=== PATIENT | female | born 1950 | race African-American/Black ===

== ENCOUNTER 2018-12-27 13:34 | Emergency (ER) | payer OTHER ==
--- NOTE | 2018-12-27 14:51 | RAD REPORT ---
EXAM DESCRIPTION: CT - Head C Spine Mpr Wo Con - 12/27/2018 2:34 pm CLINICAL HISTORY: Head and neck injury status post fall. Head and neck pain. Syncope COMPARISON: 2014 TECHNIQUE: Computed axial tomography of the head and cervical spine was obtained. Sagittal and coronal reconstruction was performed. All CT scans are performed using dose optimization technique as appropriate and may include automated exposure control or mA/KV adjustment according to patient size. FINDINGS: An intracranial bleed is not seen. The ventricles are normal in caliber. Mild to moderate low-density areas within periventricular, deep and subcortical white matter likely i schemic changes secondary to small vessel disease An extra-axial fluid collection is not noted.Fluid within the visualized sinuses and mastoids is not seen A cervical fracture is not visualized. No dislocation is noted. Spondylosis involves the mid and dist al cervical spine IMPRESSION: No acute intracranial abnormality is seen. A cervical fracture is not visualized. If the patient continues to have symptoms to suggest intracra nial /spinal cord pathology then MRI would be recommended
[2018-12-27 15:53] LABS: Absolute Lymphocytes (CBC) 1.4 K/uL (0.7-4.9); Basophils % 0.9 % (0-1.3); Eosinophils % 4.2 % (0-4.4); Hematocrit 43.1 % (36.0-45.0); Lymphocytes % 24.7 % (15.3-44.8); MPV 9.7 fL (7.6-11.3); Monocytes % 9.9 % (3.3-12.3); RBC Red Blood Cell Count 4.65 M/uL (3.86-4.86)
--- NOTE | 2018-12-27 15:58 | RAD REPORT ---
EXAM DESCRIPTION: RAD - Knee Right 3 View - 12/27/2018 3:13 pm CLINICAL HISTORY: fall;Pain COMPARISON: <Comparisons> FINDINGS: Arthritic changes are present without acute fracture seen. A joint effusion is not identi fied. IMPRESSION: No fractures appreciated.
--- NOTE | 2018-12-27 16:01 | RAD REPORT ---
EXAM DESCRIPTION: RAD - Knee Left 3 View - 12/27/2018 3:14 pm CLINICAL HISTORY: fall;Pain COMPARISON: <Comparisons> FINDINGS: No fracture or dislocation seen. No joint effusion.
--- NOTE | 2018-12-27 16:09 | RAD REPORT ---
EXAM DESCRIPTION: RAD - Shoulder Left 2 View - 12/27/2018 3:13 pm CLINICAL HISTORY: fall;Pain COMPARISON: <Comparisons> FINDINGS: AC joint and glenohumeral joint arthritic changes are present. No fracture or dislocation is seen.
--- NOTE | 2018-12-27 16:11 | RAD REPORT ---
EXAM DESCRIPTION: RAD - Chest Single View - 12/27/2018 3:13 pm CLINICAL HISTORY: dizziness, fall Chest pain. COMPARISON: <Comparisons> FINDINGS: Portable technique limits examination quality. The lungs are grossly clear. The heart is normal in size. No displaced fractures. IMPRESSION: No acute intrathoracic process suspected.
[2018-12-27 16:13] LABS: ALT/SGPT 19 U/L (12-78); AST/SGOT 16 U/L (15-37); Albumin 3.7 g/dL (3.4-5.0); Alkaline Phosphatase 86 U/L (45-117); BUN Blood Urea Nitrogen 31 mg/dL (7-18); Bicarbonate 31 mmol/L (21-32); Bilirubin Direct < 0.1 mg/dL (0-0.2); Bilirubin Total 0.3 mg/dL (0.2-1.0); Glucose Level 85 mg/dL (74-106); Magnesium 2.7 mg/dL (1.8-2.4); NT PRO-BNP 103 pg/mL (<125); Protein, Total 7.9 g/dL (6.4-8.2); Sodium Level 143 mmol/L (136-145); Troponin (Emerg Dept Use Only) < 0.02 ng/mL (0.0-0.045)
--- NOTE | 2018-12-27 17:11 | EDPHYS ---
Physician Documentation [facility] Name: Berna Suarez Age: 68 yrs Sex: Female : 1950 Arrival Date: 12/27/2018 Time: 13:41 Bed 26 Private MD: ED Physician Joaquin Owens HPI: 12/27 14:16 This 68 yrs old Black Female presents to ER via EMS with complaints of Knee Pain. cp 14:16 Details of fall: The patient fell from an upright position, while walking. Onset: The cp symptoms/episode began/occurred today. 14:16 Associated injuries: The patient sustained left shoulder, painful injury, left knee and cp right knee, painful injury. Severity of symptoms: in the emergency department the symptoms are unchanged, despite EMS interventions. EMS reports patient was walking dog when she became dizzy and fell to ground. No reported LOC. Historical: - Allergies: 13:44 Iodine; ca1 - Home Meds: 13:44 Lisinopril Oral [Active]; ca1 13:44 nortriptyline Oral [Active]; ca1 - PMHx: 13:44 Hypertension; ca1 - PSHx: 13:44 None; ca1 - Immunization history:: Adult Immunizations not up to date. - Social history:: Smoking status: Patient uses tobacco products, smokes one-half pack cigarettes per day. - Ebola Screening: : Patient negative for fever greater than or equal to 101.5 degrees Fahrenheit, and additional compatible Ebola Virus Disease symptoms Patient denies exposure to infectious person Patient denies travel to an Ebola-affected area in the 21 days before illness onset. ROS: 14:25 Constitutional: Negative for body aches, chills, fever, poor PO intake. cp 14:25 Cardiovascular: Negative for chest pain. cp 14:25 Respiratory: Negative for cough, shortness of breath, wheezing. 14:25 Abdomen/GI: Negative for abdominal pain, vomiting, diarrhea, constipation, black/tarry stool, rectal bleeding. 14:25 Back: Negative for pain at rest, pain with movement. 14:25 : Negative for urinary symptoms. 14:25 MS/extremity: Positive for pain, tenderness, of the left shoulder and left knee and right knee, Negative for decreased range of motion, deformity. 14:25 Neuro: Positive for dizziness, Negative for altered mental status, loss of consciousness, syncope, weakness. 14:25 All other systems are negative. Exam: 14:33 Constitutional: The patient appears in no acute distress, alert, awake, cp non-diaphoretic, non-toxic, well developed, well nourished. 14:33 Head/Face: Normocephalic, atraumatic. cp 14:33 Eyes: Periorbital structures: appear normal, Pupils: equal, round, and reactive to light and accomodation, Conjunctiva: normal, no exudate, no injection, Lids and lashes: appear normal, bilaterally. 14:33 ENT: External ear(s): are unremarkable, Ear canal(s): are normal, clear, TM's: dullness, bilaterally, Nose: is normal, Mouth: Lips: moist, Oral mucosa: moist, Posterior pharynx: is normal, airway is patent, no erythema, no exudate. 14:33 Neck: C-spine: vertebral tenderness, is not appreciated, crepitus, is not appreciated. 14:33 Chest/axilla: Inspection: normal, Palpation: is normal, no crepitus, no tenderness. 14:33 Cardiovascular: Rate: normal, Rhythm: regular, Heart sounds: murmur, not appreciated, Edema: is not appreciated, JVD: is not appreciated. 14:33 Respiratory: the patient does not display signs of respiratory distress, Respirations: normal, no use of accessory muscles, no retractions, no splinting, no tachypnea, labored breathing, is not present, Breath sounds: are clear throughout, no decreased breath sounds, no stridor, no wheezing. 14:33 Abdomen/GI: Inspection: abdomen appears normal, Palpation: abdomen is soft and non-tender, in all quadrants. 14:33 Back: vertebral tenderness, is not appreciated. 14:33 Musculoskeletal/extremity: Extremities: grossly normal except: noted in the left shoulder and left knee and right knee: pain, tenderness, There is no evidence of decreased ROM, deformity. 14:33 Neuro: Orientation: no acute changes, per EMS, per family, Mentation: no acute changes, per EMS, per family, Motor: moves all fours, strength is normal. 15:30 ECG was reviewed by the Attending Physician. cp Vital Signs: 13:44 BP 129 / 77; Pulse 78; Resp 16 S; Temp 98.4(O); Pulse Ox 100% on R/A; Weight 81.65 kg ca1 (M); Height 5 ft. 4 in. (162.56 cm); Pain 0/10; 15:30 BP 169 / 96; Pulse 64; Resp 15 S; Pulse Ox 96% on R/A; ca1 16:37 BP 146 / 93; Pulse 62; Resp 16 S; Pulse Ox 100% on R/A; ca1 17:20 BP 164 / 92; Pulse 67; Resp 17; Temp 98.5; Pulse Ox 98% on R/A; jp3 17:50 BP 168 / 98; Pulse 70; Resp 20; Temp 98.1(O); Pulse Ox 19% on R/A; ca1 18:30 BP 184 / 91; Pulse 63; Resp 16 S; Temp 98(O); Pulse Ox 98% ; ca1 13:44 Body Mass Index 30.90 (81.65 kg, 162.56 cm) ca1 MDM: 13:51 Patient medically screened. cp 17:00 Data reviewed: vital signs, nurses notes, lab test result(s), EKG, radiologic studies, cp CT scan, plain films. 17:10 Test interpretation: by ED physician or midlevel provider: plain radiologic studies. cp Counseling: I had a detailed discussion with the patient and/or guardian regarding: the historical points, exam findings, and any diagnostic results supporting the discharge/admit diagnosis, lab results, radiology results, to return to the emergency department if symptoms worsen or persist or if there are any questions or concerns that arise at home. Response to treatment: the patient's symptoms have markedly improved after treatment. ED course: VSS. Labs reviewed and radiology studies negative for fracture or intracranial injury. Will discharge home with daughter who will monitor patient. 12/27 13:53 Order name: Basic Metabolic Panel cp 12/27 13:53 Order name: CBC with Diff cp 12/27 13:53 Order name: LFT's cp 12/27 13:53 Order name: Magnesium cp 12/27 13:53 Order name: NT PRO-BNP; Complete Time: 16:49 cp 12/27 13:53 Order name: PT-INR; Complete Time: 16:49 cp 12/27 13:53 Order name: Troponin (emerg Dept Use Only); Complete Time: 16:49 cp 12/27 16:50 Interpretation: TROPED < 0.02; Reviewed. 12/27 13:53 Order name: XRAY Chest (1 view); Complete Time: 16:49 12/27 16:50 Interpretation: Report review. 12/27 13:55 Order name: Basic Metabolic Panel; Complete Time: 16:49 EDMS 12/27 16:49 Interpretation: Normal except: CL 108; BUN 31; GFR 55. 12/27 13:55 Order name: CBC with Automated Diff; Complete Time: 16:49 EDMS 12/27 16:50 Interpretation: Reviewed. 12/27 13:55 Order name: Liver (Hepatic) Function; Complete Time: 16:49 EDMS 12/27 16:49 Interpretation: Normal except: GLOB 4.2; A/G 0.9. 12/27 13:55 Order name: Magnesium; Complete Time: 16:49 EDMS 12/27 16:49 Interpretation: MG 2.7; Reviewed. 12/27 13:55 Order name: XRAY Knee LEFT 3 view; Complete Time: 16:49 12/27 13:53 Order name: EKG; Complete Time: 13:56 12/27 13:53 Order name: Cardiac monitoring; Complete Time: 15:03 12/27 13:53 Order name: EKG - Nurse/Tech; Complete Time: 15:38 12/27 13:53 Order name: IV Saline Lock; Complete Time: 15:38 12/27 13:53 Order name: Labs collected and sent; Complete Time: 15:38 12/27 13:53 Order name: O2 Per Protocol; Complete Time: 14:32 12/27 13:53 Order name: O2 Sat Monitoring; Complete Time: 14:33 12/27 13:55 Order name: XRAY Knee RIGHT 3 view; Complete Time: 16:49 12/27 13:55 Order name: XRAY Shoulder LEFT 2 view; Complete Time: 16:49 12/27 16:50 Interpretation: Report reviewed. 12/27 13:55 Order name: CT Head C Spine; Complete Time: 15:46 12/27 15:46 Interpretation: Reviewed report. 12/27 17:09 Order name: Misc. Order: ambulate patient; Complete Time: 17:50 cp EC:30 Rate is 69 beats/min. Rhythm is regular. OK interval is normal. QRS interval is cp prolonged at 112 msec. QT interval is normal. Interpreted by me. Reviewed by me. Administered Medications: Discontinued: NS 0.9% 500 ml IV at bolus once 18:18 Drug: Meclizine 25 mg Route: PO; ca1 18:46 Follow up: Response: No adverse reaction; No adverse reaction. Dizziness decreased ca1 18:18 Drug: NS 0.9% 500 ml Route: IV; Rate: bolus; Site: right antecubital; ca1 18:46 Follow up: Response: No adverse reaction ca1 18:20 Drug: Zofran 4 mg Route: IVP; Site: right antecubital; ca1 18:47 Follow up: Response: No adverse reaction ca1 18:35 Drug: cloNIDine 0.1 mg Route: PO; ca1 18:47 Follow up: Response: Medication administered at discharge. ca1 Disposition: 18:55 Chart complete. cp Disposition: 12/27/18 17:10 Discharged to Home. Impression: Fall on same level from slipping, tripping and stumbling, Pain in left shoulder, Pain in knee. - Condition is Stable. - Discharge Instructions: Shoulder Pain, Knee Pain. - Medication Reconciliation Form, Thank You Letter, Antibiotic Education, Prescription Opioid Use form. - Follow up: Private Physician; When: 2 - 3 days; Reason: Recheck today's complaints. - Problem is new. - Symptoms have improved. Signatures: Dispatcher [employer] EDMS Britton Woo PA PA cp Acob, Cheryl RN RN ca1 Corrections: (The following items were deleted from the chart) 18:48 13:53 Urine Dipstick-Ancillary ordered. ca1 18:53 17:10 12/27/2018 17:10 Discharged to Home. Impression: Fall on same level from ca1 slipping, tripping and stumbling; Pain in left shoulder; Pain in knee. Condition is Stable. Forms are Medication Reconciliation Form, Thank You Letter, Antibiotic Education, Prescription Opioid Use. Follow up: Private Physician; When: 2 - 3 days; Reason: Recheck today's complaints. Problem is new. Symptoms have improved. cp
--- NOTE | 2018-12-27 17:11 | ER ---
Nurse's Notes [facility] Name: Berna Suarez Age: 68 yrs Sex: Female : 1950 Arrival Date: 12/27/2018 Time: 13:41 Bed 26 Private MD: Diagnosis: Fall on same level from slipping, tripping and stumbling;Pain in left shoulder;Pain in knee Presentation: 12/27 13:41 Presenting complaint: EMS states: pt was walking her dog outside when she suddenly ca1 feels dizzy and fell on her knees. C/O of pain on L shoulder. L arm and soreness on both knees. NO LOC and denies hitting the head. Transition of care: patient was not received from another setting of care. Onset of symptoms was December 27, 2018. Risk Assessment: Do you want to hurt yourself or someone else? Patient reports no desire to harm self or others. Initial Sepsis Screen: Does the patient meet any 2 criteria? No. Patient's initial sepsis screen is negative. Does the patient have a suspected source of infection? No. Patient's initial sepsis screen is negative. Care prior to arrival: Glucose check: 173. 13:41 Method Of Arrival: EMS: [facility] ca1 13:41 Acuity: RAYMOND 3 ca1 Triage Assessment: 13:44 General: Appears in no apparent distress. Behavior is crying, pt saying she wants to go ca1 home and is calling names of family. EMS reports family states, this is her normal mentation . Pain: Denies pain. EENT: No deficits noted. No signs and/or symptoms were reported regarding the EENT system. Neuro: Level of Consciousness is awake, alert, obeys commands, Oriented to person, place, situation. Neuro: Cardiovascular: Heart tones S1 S2 present Capillary refill < 3 seconds Patient's skin is warm and dry. Respiratory: Airway is patent Respiratory effort is even, unlabored, Respiratory pattern is regular, symmetrical, Breath sounds are clear bilaterally. GI: Abdomen is round non-distended, Bowel sounds present X 4 quads. Abd is soft and non tender X 4 quads. : No deficits noted. No signs and/or symptoms were reported regarding the genitourinary system. Derm: Skin is intact, is healthy with good turgor, Skin is pink, warm \\T\\ dry. Musculoskeletal: Circulation, motion, and sensation intact. Capillary refill < 3 seconds. Historical: - Allergies: 13:44 Iodine; ca1 - Home Meds: 13:44 Lisinopril Oral [Active]; ca1 13:44 nortriptyline Oral [Active]; ca1 - PMHx: 13:44 Hypertension; ca1 - PSHx: 13:44 None; ca1 - Immunization history:: Adult Immunizations not up to date. - Social history:: Smoking status: Patient uses tobacco products, smokes one-half pack cigarettes per day. - Ebola Screening: : Patient negative for fever greater than or equal to 101.5 degrees Fahrenheit, and additional compatible Ebola Virus Disease symptoms Patient denies exposure to infectious person Patient denies travel to an Ebola-affected area in the 21 days before illness onset. Screenin:45 Abuse screen: Denies threats or abuse. Denies injuries from another. Nutritional ca1 screening: No deficits noted. Tuberculosis screening: No symptoms or risk factors identified. Fall Risk Fall in past 12 months (25 points). IV access (20 points). Assessment: 13:45 General: Appears in no apparent distress. unkempt, Behavior is crying. ca1 13:45 Pain: Denies pain. Neuro: Level of Consciousness is awake, alert, obeys commands, ca1 Oriented to person, place, situation. Cardiovascular: Heart tones S1 S2 present Capillary refill < 3 seconds Patient's skin is warm and dry. Respiratory: Airway is patent Respiratory effort is even, unlabored, Respiratory pattern is regular, symmetrical, Breath sounds are clear bilaterally. GI: Abdomen is round non-distended, Bowel sounds present X 4 quads. Abd is soft and non tender X 4 quads. : No deficits noted. No signs and/or symptoms were reported regarding the genitourinary system. EENT: No deficits noted. No signs and/or symptoms were reported regarding the EENT system. Derm: Skin is intact, is healthy with good turgor, Skin is pink, warm \\T\\ dry. Musculoskeletal: Circulation, motion, and sensation intact. Capillary refill < 3 seconds. 14:30 Reassessment: PT wheeled to CT via stretcher. ca1 15:27 Reassessment: Patient appears in no apparent distress at this time. Pt alert, awake. ca1 Skin, warm and dry. Breathing equal and unlabored. 16:37 Reassessment: Patient appears in no apparent distress at this time. No changes from ca1 previously documented assessment. Patient and/or family updated on plan of care and expected duration. Pain level reassessed. Pt alert, awake. Skin, warm and dry. Breathing equal and unlabored. 17:40 Reassessment: Daughter's Number (Mahsa): [phone]. ca1 17:40 Reassessment: Patient appears in no apparent distress at this time. Pt alert, awake. ca1 Skin, warm and dry. Breathing equal and unlabored. 17:46 Reassessment: Reassessment: Attempted to ambulate pt. Upon standing pt complains of ca1 dizziness and being "woozy". Notified provider. 17:47 Reassessment: Nick Valdes called daughter Mahsa to inform of pt discharge status ca1 and to tell them to come and pick pt up from the ER. 18:20 Reassessment: Patient appears in no apparent distress at this time. Pt alert, awake. ca1 Skin, warm and dry. Breathing equal and unlabored. 18:30 Reassessment: Family at bedside. Mahsa requested IVF terminated. States she cannot ca1 wait and cannot come back to pick pt up. Mahsa, daughter confirmed mentation of pt is her baseline. Pt and family instructed to take scheduled BP meds when pt gets home. Verbalized understanding of instructions. 18:35 Reassessment: RADHA Romano talked to family regarding test results. ca1 Vital Signs: 13:44 BP 129 / 77; Pulse 78; Resp 16 S; Temp 98.4(O); Pulse Ox 100% on R/A; Weight 81.65 kg ca1 (M); Height 5 ft. 4 in. (162.56 cm); Pain 0/10; 15:30 BP 169 / 96; Pulse 64; Resp 15 S; Pulse Ox 96% on R/A; ca1 16:37 BP 146 / 93; Pulse 62; Resp 16 S; Pulse Ox 100% on R/A; ca1 17:20 BP 164 / 92; Pulse 67; Resp 17; Temp 98.5; Pulse Ox 98% on R/A; jp3 17:50 BP 168 / 98; Pulse 70; Resp 20; Temp 98.1(O); Pulse Ox 19% on R/A; ca1 18:30 BP 184 / 91; Pulse 63; Resp 16 S; Temp 98(O); Pulse Ox 98% ; ca1 13:44 Body Mass Index 30.90 (81.65 kg, 162.56 cm) ca1 ED Course: 13:41 Patient arrived in ED. ca1 13:42 Britton Woo PA is PHCP. cp 13:42 Joaquin Owens MD is Attending Physician. cp 13:43 Triage completed. ca1 13:44 Arm band placed on left wrist. ca1 13:45 Patient has correct armband on for positive identification. Placed in gown. Bed in low ca1 position. Call light in reach. Side rails up X2. laboratory monitor on. Pulse ox on. NIBP on. Warm blanket given. 13:45 No provider procedures requiring assistance completed. ca1 14:14 Brenda Garcia, RN is Primary Nurse. ca1 14:36 CT Head C Spine In Process Unspecified. EDMS 14:49 Patient moved to radiology via stretcher. [facility] 15:12 XRAY Chest (1 view) In Process Unspecified. EDMS 15:12 XRAY Knee LEFT 3 view In Process Unspecified. EDMS 15:12 XRAY Knee RIGHT 3 view In Process Unspecified. EDMS 15:12 XRAY Shoulder LEFT 2 view In Process Unspecified. EDMS 15:12 X-ray completed. PT SOMEWHAT ALTERED TALKING ABOUT HER BABY DURING EXAM. Patient moved mh1 back from radiology. 15:30 Inserted saline lock: 22 gauge in right antecubital area, using aseptic technique. ca1 Blood collected. 15:48 pt daughter cell phone: [phone], Mahsa. bd 18:52 IV discontinued, intact, bleeding controlled, No redness/swelling at site. Pressure ca1 dressing applied. Administered Medications: Discontinued: NS 0.9% 500 ml IV at bolus once 18:18 Drug: Meclizine 25 mg Route: PO; ca1 18:46 Follow up: Response: No adverse reaction; No adverse reaction. Dizziness decreased ca1 18:18 Drug: NS 0.9% 500 ml Route: IV; Rate: bolus; Site: right antecubital; ca1 18:46 Follow up: Response: No adverse reaction ca1 18:20 Drug: Zofran 4 mg Route: IVP; Site: right antecubital; ca1 18:47 Follow up: Response: No adverse reaction ca1 18:35 Drug: cloNIDine 0.1 mg Route: PO; ca1 18:47 Follow up: Response: Medication administered at discharge. ca1 Outcome: 17:10 Discharge ordered by . cp 18:52 Discharged to home via wheelchair, with family. ca1 18:52 Condition: stable 18:52 Discharge instructions given to patient, daughter Instructed on discharge instructions, follow up and referral plans. Demonstrated understanding of instructions, follow-up care. 18:53 Patient left the ED. ca1 Signatures: Dispatcher [employer] EDMS Dacia Hooks Martha mh1 Britton Woo PA PA Saeid Connell jp3 Brenda Garcia RN RN ca1 Corrections: (The following items were deleted from the chart) 17:49 17:46 Reassessment: ca1 ca1 17:54 16:37 Reassessment: Patient appears in no apparent distress at this time. Patient ca1 and/or family updated on plan of care and expected duration. Pain level reassessed. ca1 17:56 16:37 Reassessment: Patient appears in no apparent distress at this time. No changes ca1 from previously documented assessment. Patient and/or family updated on plan of care and expected duration. Pain level reassessed. ca1
[2018-12-27] MEDS ORDERED: ONDANSETRON 4 MG/2 ML VIAL ONE (18:36)
[2018-12-27] MEDS ORDERED: MECLIZINE HCL 12.5 MG TAB ONE (18:36)
[2018-12-27] MEDS ORDERED: NA CHLORIDE 0.9% 500 ML ONE (18:36)
[2018-12-27] MEDS ORDERED: cloNIDine HCl 0.1 MG TAB ONE (18:56)
[2018-12-27 19:28] VITALS: BP 184/91; TEMP 98; O2SAT 98
--- NOTE | 2018-12-27 22:23 | EKG ---
Test Date: 2018-12-27 Test Time: 15:23:50 Manager Of Corporate Communications: GARCÍA MEASUREMENT RESULTS: Intervals: Rate: 69 DE: 124 QRSD: 112 QT: 424 QTc: 454 Industry: P: 65 DE: 124 QRS: -22 T: 13 INTERPRETIVE STATEMENTS: Sinus rhythm with marked sinus arrhythmia Right bundle branch block Abnormal ECG Compared to ECG 01/10/2015 12:17:15 Sinus tachycardia no longer present Electronically Signed On 12-27-18 22:22:25 CDT by Cody Hill
== END 2018-12-27 18:53 | disposition home or self-care (01) ==
LOC: ER 13:34
DX: M25.562 Pain in left knee (principal); M25.512 Pain in left shoulder; W01.0XXA Fall on same level from slipping, tripping and stumbling without subsequent striking against object, initial encounter; Y93.K1 Activity, walking an animal; Y92.9 Unspecified place or not applicable; Z91.048 Other nonmedicinal substance allergy status; I10 Essential (primary) hypertension; F17.210 Nicotine dependence, cigarettes, uncomplicated
CPT/HCPCS: 36415; 70450; 71045; 72125; 80048; 80076; 83735; 83880; 84484; 85025; 85610; 93005; 96374; 99284; J2405

== ENCOUNTER 2019-02-23 16:08 | Emergency (ER) | payer OTHER ==
--- NOTE | 2019-02-23 17:37 | RAD REPORT ---
EXAM DESCRIPTION: CT - Head C Spine Cap Wo Con - 02/23/2019 5:18 pm TECHNIQUE: Computed axial tomography of the head and cervical spine was obtained. Coronal and sagitt al reconstruction was performed Computed axial tomography of the chest, abdomen and pelvis was obtained. Contrast was not requested. All CT scans are performed using dose optimization technique as appropriate and may include automated exposure control or mA/KV adjustment according to patient size. CLINICAL HISTORY: Head and neck injury with chest and abdominal pain status post fall COMPARISON: December 2018 CT head and C-spine FINDINGS: An intracranial bleed is not seen. The ventricles are normal in caliber. An extra-axial fluid collection is not noted. . Fluid within the sinuses/mastoids is not seen. A cervical fracture is not seen. No dislocation is noted. The evaluation of mediastinum, tawanna, vessels, solid organs and bowel are limited secondary to the lac k of contrast administration. A mediastinal hematoma is not noted. A pleural effusion is not seen. A lung contusion is not present. The liver,spleen, pancreas, adrenals,kidneys and bladder do not demonstrate a gross traumatic injury Mild anterior subluxation L4 on L5 IMPRESSION: 1. No acute intracranial abnormality is seen. 2. A cervical fracture is not visualized. If the patient continues have symptoms to suggest intracran ial/spinal cord pathology MRI be recommended 3. No traumatic abnormality involving the chest/abdomen/pelvis.
[2019-02-23 18:21] LABS: Basophils % 0.5 % (0-1.3); Hematocrit 44.2 % (36.0-45.0); Lymphocytes % 17.4 % (15.3-44.8); MPV 9.6 fL (7.6-11.3); RBC Red Blood Cell Count 4.78 M/uL (3.86-4.86)
[2019-02-23 18:23] LABS: Protime INR 1.04
[2019-02-23 18:40] LABS: ALT/SGPT 23 U/L (12-78); AST/SGOT 18 U/L (15-37); Albumin 4.2 g/dL (3.4-5.0); Alkaline Phosphatase 94 U/L (45-117); BUN Blood Urea Nitrogen 20 mg/dL (7-18); Bicarbonate 28 mmol/L (21-32); Bilirubin Direct 0.1 mg/dL (0-0.2); Bilirubin Total 0.3 mg/dL (0.2-1.0); Glucose Level 89 mg/dL (74-106); Magnesium 2.5 mg/dL (1.8-2.4); NT PRO-BNP 268 pg/mL (<125); Potassium 4.1 mmol/L (3.5-5.1); Protein, Total 8.1 g/dL (6.4-8.2); Sodium Level 144 mmol/L (136-145); Troponin (Emerg Dept Use Only) < 0.02 ng/mL (0.0-0.045)
--- NOTE | 2019-02-23 18:43 | RAD REPORT ---
EXAM DESCRIPTION: RAD - Ankle Left 3 View -02/23/2019 6:19 pm CLINICAL HISTORY: Left ankle pain status post injury FINDINGS: No acute fracture or dislocation is seen.
--- NOTE | 2019-02-23 19:21 | EDPHYS ---
Physician Documentation [facility] Name: Berna Suarez Age: 68 yrs Sex: Female : 1950 Arrival Date: 02/23/2019 Time: 16:09 Bed 16 Private MD: None, None ED Physician Michael Mehta HPI: 02/23 17:26 This 68 yrs old Black Female presents to ER via EMS with complaints of Fall Injury. jmm 17:26 Details of fall: The patient fell from an upright position, while walking. Onset: The jmm symptoms/episode began/occurred acutely, just prior to arrival. This is a 68 year old female with a history of htn that presents to the ED with headache, neck pain, and lower back pain after falling down 4 steps. Patient unsure whether she had tripped or fainted. Currently denies chest pain or shortness of breath. . Historical: - Allergies: 16:17 Iodine; aa5 - PMHx: 16:17 Hypertension; aa5 - PSHx: 16:17 None; aa5 - Immunization history:: Flu vaccine status is unknown. - Immunization history: Last tetanus immunization: unknown. - Ebola Screening: : No symptoms or risks identified at this time. - Social history:: Smoking status: Patient uses tobacco products. ROS: 17:26 Constitutional: Negative for fever, chills, and weight loss, Cardiovascular: Negative jmm for chest pain, palpitations, and edema, Respiratory: Negative for shortness of breath, cough, wheezing, and pleuritic chest pain. 17:26 Neck: Positive for pain with movement. 17:26 Back: Positive for pain with movement. 17:26 MS/extremity: Positive for pain. 17:26 All other systems are negative. Exam: 17:26 Head/Face: atraumatic. Eyes: EOMI, no conjunctival erythema appreciated ENT: Moist jmm Mucus Membranes 17:26 Chest/axilla: Normal chest wall appearance and motion. Cardiovascular: Regular rate and rhythm. No edema appreciated Respiratory: Normal respirations, no respiratory distress appreciated Abdomen/GI: Non distended, soft Back: Normal ROM Skin: General appearance color normal 17:26 Constitutional: The patient appears in no acute distress, alert, awake. 17:26 Neck: C-spine: C-collar placed in ED. 17:26 Musculoskeletal/extremity: painful rom noted to the left ankle. no obvious deformity appreciated, full dorsalis pulse, compartments are soft, NVI. 17:26 Skin: Appearance: Color: normal in color. 17:26 Neuro: Orientation: is normal, Mentation: is normal, Memory: is normal. 17:26 Psych: Behavior/mood is pleasant, cooperative. Vital Signs: 16:18 BP 126 / 77; Pulse 78; Resp 18 S; Temp 98.7(O); Pulse Ox 97% on R/A; Pain 6/10; aa5 19:17 BP 152 / 107; Pulse 55; Resp 18; Pulse Ox 98% on R/A; mg2 [place] Coma Score: 19:12 Eye Response: spontaneous(4). Verbal Response: oriented(5). Motor Response: obeys mg2 commands(6). Total: 15. Trauma Score (Adult): 19:12 Eye Response: spontaneous(1); Verbal Response: oriented(1); Motor Response: obeys mg2 commands(2); Systolic BP: > 89 mm Hg(4); Respiratory Rate: 10 to 29 per min(4); [place] Score: 15; Trauma Score: 12 MDM: 17:26 Patient medically screened. [facility] 19:19 Data reviewed: vital signs, nurses notes. Counseling: I had a detailed discussion with taryn the patient and/or guardian regarding: the historical points, exam findings, and any diagnostic results supporting the discharge/admit diagnosis, radiology results, the need for outpatient follow up, to return to the emergency department if symptoms worsen or persist or if there are any questions or concerns that arise at home. 02/23 17:42 Order name: Basic Metabolic Panel [facility] 02/23 17:42 Order name: CBC with Diff [facility] 02/23 17:42 Order name: LFT's; Complete Time: 18:41 [facility] 02/23 17:42 Order name: Magnesium; Complete Time: 18:41 [facility] 02/23 17:42 Order name: NT PRO-BNP; Complete Time: 18:41 [facility] 02/23 17:42 Order name: PT-INR; Complete Time: 18:28 [facility] 02/23 16:22 Order name: Head C Spine Cap Wo Con CT; Complete Time: 17:40 [facility] 02/23 17:42 Order name: Troponin (emerg Dept Use Only); Complete Time: 18:41 [facility] 02/23 17:42 Order name: EKG; Complete Time: 17:43 [facility] 02/23 17:42 Order name: Cardiac monitoring; Complete Time: 18:12 [facility] 02/23 17:42 Order name: EKG - Nurse/Tech; Complete Time: 18:12 [facility] 02/23 17:43 Order name: Basic Metabolic Panel; Complete Time: 18:41 [facility] 02/23 17:43 Order name: CBC with Automated Diff; Complete Time: 18:28 [facility] 02/23 18:02 Order name: Ankle Left 3 View XRAY; Complete Time: 18:45 [facility] 02/23 17:42 Order name: IV Saline Lock; Complete Time: 18:12 [facility] 02/23 17:42 Order name: Labs collected and sent; Complete Time: 18:12 [facility] 02/23 17:42 Order name: O2 Per Protocol; Complete Time: 18:12 [facility] 02/23 17:42 Order name: O2 Sat Monitoring; Complete Time: 18:12 [facility] Administered Medications: No medications were administered Disposition: 02/23/19 19:20 Discharged to Home. Impression: Strain of muscle, fascia and tendon of lower back, Sprain of ligaments of cervical spine, Superficial injury of head. - Condition is Stable. - Discharge Instructions: Back Pain, Adult, Head Injury, Adult, Cervical Sprain. - Prescriptions for orphenadrine citrate 100 mg Oral Tablet Sustained Release - take 1 tablet by ORAL route 2 times per day As needed; 20 tablet. - Medication Reconciliation Form, Thank You Letter, Antibiotic Education, Prescription Opioid Use form. - Follow up: Private Physician; When: 2 - 3 days; Reason: Recheck today's complaints, Continuance of care, Re-evaluation by your physician. Signatures: Dispatcher [employer] EDMS Roberto Ireland PA PA jmm Calderon, Audri RN RN aa5 Phillip June RN RN mg2 Corrections: (The following items were deleted from the chart) 19:51 19:20 02/23/2019 19:20 Discharged to Home. Impression: Strain of muscle, fascia and mg2 tendon of lower back; Sprain of ligaments of cervical spine; Superficial injury of head. Condition is Stable. Forms are Medication Reconciliation Form, Thank You Letter, Antibiotic Education, Prescription Opioid Use. Follow up: Private Physician; When: 2 - 3 days; Reason: Recheck today's complaints, Continuance of care, Re-evaluation by your physician. gm
--- NOTE | 2019-02-23 19:21 | ER ---
Nurse's Notes [facility] Name: Berna Suarez Age: 68 yrs Sex: Female : 1950 Arrival Date: 02/23/2019 Time: 16:09 Bed 16 Private MD: None, None Diagnosis: Strain of muscle, fascia and tendon of lower back;Sprain of ligaments of cervical spine;Superficial injury of head Presentation: 02/23 16:17 Presenting complaint: Patient states: "I was coming down the steps and I fell down to aa5 the ground and my neck hurts". Pt states "I was on the ground outside until the ambulance helped me up off the ground". C-collar in place. Transition of care: patient was not received from another setting of care. Onset of symptoms was February 23, 2019. Risk Assessment: Do you want to hurt yourself or someone else? Patient reports no desire to harm self or others. Initial Sepsis Screen: Does the patient meet any 2 criteria? No. Patient's initial sepsis screen is negative. Does the patient have a suspected source of infection? No. Patient's initial sepsis screen is negative. Care prior to arrival: Cervical collar in place. 16:17 Acuity: RAYMOND 3 aa5 16:17 Method Of Arrival: EMS: [facility] aa5 19:12 Mechanism of Injury: Fall. Trauma event details: Injury occurred in the county of. mg2 Triage Assessment: 19:50 General: Behavior is calm, cooperative. mg2 Trauma Activation: Not Applicable Physician: ED Physician; Name: ; Notified At: ; Arrived At: Physician: General Surgeon; Name: ; Notified At: ; Arrived At: Physician: Radiology; Name: ; Notified At: ; Arrived At: Physician: Respiratory; Name: ; Notified At: ; Arrived At: Physician: Lab; Name: ; Notified At: ; Arrived At: Historical: - Allergies: 16:17 Iodine; aa5 - PMHx: 16:17 Hypertension; aa5 - PSHx: 16:17 None; aa5 - Immunization history:: Flu vaccine status is unknown. - Immunization history: Last tetanus immunization: unknown. - Ebola Screening: : No symptoms or risks identified at this time. - Social history:: Smoking status: Patient uses tobacco products. Screenin:52 Abuse screen: Denies threats or abuse. Denies injuries from another. Nutritional mg2 screening: No deficits noted. Tuberculosis screening: No symptoms or risk factors identified. Fall Risk IV access (20 points). Primary Survey: 19:11 NO uncontrolled hemorrhage observed. A: The patient is alert. Airway: patent, No mg2 supplemental oxygen in use on arrival. Breathing/Chest: Respiratory pattern: regular, Respiratory effort: spontaneous, unlabored, Breath sounds: clear, bilaterally. in mediastinum, right upper lobe, left upper lobe, right middle lobe, left lower lobe, right lower lobe, left posterior upper lobe, right posterior upper lobe, left posterior lower lobe, right posterior middle lobe and right posterior lower lobe. Circulation: Skin color: pink. Disability Alert. Exposure/Environment: All clothing and personal items were removed. Forensic evidence collection is not deemed to be indicated at this time. Items placed in patient belonging bag. There is no evidence of uncontrolled external bleeding. No obvious injuries are noted at this time. A warming method has been applied: A warm blanket has been provided to the patient. 19:50 Reassessment Airway Airway Patent Breathing/Chest Respiratory pattern Regular mg2 Respiratory effort Spontaneous Unlabored Circulation Color [place] Disability Alert. Secondary Survey: 19:12 HEENT: No deficits noted. Gastrointestinal: No deficits noted. : No deficits noted. mg2 Musculoskeletal: Circulation, motion, and sensation intact. Capillary refill < 3 seconds. Assessment: 19:16 Reassessment:. General: Appears in no apparent distress. comfortable. Pain: Complains mg2 of pain in neck and shoulder. Neuro: Level of Consciousness is awake, alert, obeys commands, Oriented to person, place, time, situation. Cardiovascular: Capillary refill < 3 seconds Patient's skin is warm and dry. Respiratory: Airway is patent Respiratory effort is even, unlabored, Respiratory pattern is regular, symmetrical. GI: No signs and/or symptoms were reported involving the gastrointestinal system. : No signs and/or symptoms were reported regarding the genitourinary system. EENT: No signs and/or symptoms were reported regarding the EENT system. Derm: Skin is intact, is healthy with good turgor, Skin is pink, warm \\T\\ dry. normal. Musculoskeletal: Circulation, motion, and sensation intact. Capillary refill < 3 seconds. Vital Signs: 16:18 BP 126 / 77; Pulse 78; Resp 18 S; Temp 98.7(O); Pulse Ox 97% on R/A; Pain 6/10; aa5 19:17 BP 152 / 107; Pulse 55; Resp 18; Pulse Ox 98% on R/A; mg2 [place] Coma Score: 19:12 Eye Response: spontaneous(4). Verbal Response: oriented(5). Motor Response: obeys mg2 commands(6). Total: 15. Trauma Score (Adult): 19:12 Eye Response: spontaneous(1); Verbal Response: oriented(1); Motor Response: obeys mg2 commands(2); Systolic BP: > 89 mm Hg(4); Respiratory Rate: 10 to 29 per min(4); [place] Score: 15; Trauma Score: 12 ED Course: 16:09 Patient arrived in ED. ag5 16:09 None, None is Private Physician. ag5 16:17 Arm band placed on. aa5 16:18 Triage completed. aa5 17:11 Roberto Ireland PA is PHCP. [facility] 17:11 Michael Mehta MD is Attending Physician. [facility] 17:17 CT completed. Patient tolerated procedure well. Patient moved to CT. Patient moved back nj from CT. 17:18 Head C Spine Cap Wo Con CT In Process Unspecified. EDMS 18:01 Phillip June, RN is Primary Nurse. mg2 18:20 Ankle Left 3 View XRAY In Process Unspecified. EDMS 18:53 No provider procedures requiring assistance completed. Inserted saline lock: 22 gauge mg2 in left hand, using aseptic technique. Blood collected. 19:17 Patient maintains SpO2 saturation greater than 95% on room air. Thermoregulation: warm mg2 blanket given to patient. 19:49 Patient has correct armband on for positive identification. mg2 19:50 IV discontinued, intact, bleeding controlled, No redness/swelling at site. Pressure mg2 dressing applied. Administered Medications: No medications were administered Intake: 19:12 PO: 0ml; Total: 0ml. mg2 Outcome: 19:20 Discharge ordered by . [facility] 19:49 Discharged to home via wheelchair. mg2 19:49 Condition: stable 19:49 Discharge instructions given to patient, family, Instructed on discharge instructions, follow up and referral plans. Demonstrated understanding of instructions, follow-up care, medications, Prescriptions given X 1. 19:49 Patient's length of stay was not longer than 2 hours. 19:51 Patient left the ED. mg2 Signatures: Dispatcher [employer] EDMS Roberto Ireland PA PA jmm Calderon, Audri, RN RN aa5 Maxwell Cavazos Michele, RN RN mg2 Gonzales Crockett ag5 Corrections: (The following items were deleted from the chart) 16:20 16:18 Pulse 78bpm; Resp 18bpm; Spontaneous; Pulse Ox 97% RA; Temp 98.7F Oral; aa5 aa5
[2019-02-23 19:57] VITALS: TEMP 98.7
[2019-02-23 19:59] VITALS: BP 152/107; O2SAT 98
--- NOTE | 2019-02-24 11:37 | EKG ---
Test Date: 2019-02-23 Test Time: 18:01:55 Radio Director: GARCÍA MEASUREMENT RESULTS: Intervals: Rate: 70 OH: 134 QRSD: 134 QT: 430 QTc: 464 [place]: P: 62 OH: 134 QRS: 5 T: 11 INTERPRETIVE STATEMENTS: Sinus rhythm with premature supraventricular complexes Right bundle branch block Abnormal ECG Compared to ECG 12/27/2018 15:23:50 Atrial premature complex(es) now present Sinus arrhythmia no longer present Electronically Signed On 02-24-19 11:34:53 CDT by Andrea Glass
== END 2019-02-23 19:51 | disposition home or self-care (01) ==
LOC: ER 16:08
DX: S39.012A Strain of muscle, fascia and tendon of lower back, initial encounter (principal); S13.4XXA Sprain of ligaments of cervical spine, initial encounter; S00.90XA Unspecified superficial injury of unspecified part of head, initial encounter; W10.9XXA Fall (on) (from) unspecified stairs and steps, initial encounter; Y93.9 Activity, unspecified; Y92.9 Unspecified place or not applicable; Z72.0 Tobacco use; Z91.048 Other nonmedicinal substance allergy status; I10 Essential (primary) hypertension
CPT/HCPCS: 36415; 70450; 71250; 72125; 80048; 80076; 83735; 83880; 84484; 85025; 85610; 93005

== ENCOUNTER 2025-04-03 19:36 | Inpatient (IN) | payer OTHER ==
[2025-04-03 20:09] LABS: Absolute Lymphocytes (CBC) 1.2 K/uL (0.7-4.9); Hematocrit 36.6 % (36.0-45.0); Hemoglobin 11.8 g/dL (12.0-15.0); MCH 30.2 pg (27.0-35.0); MCHC 32.2 g/dL (32.0-36.0); MCV 93.9 fL (80-100); MPV 9.9 fL (7.6-11.3); Nucleated RBC Absolute Count 0.0 (0-0); Nucleated Red Blood Cells % 0.0 % (0-0); RBC Red Blood Cell Count 3.89 M/uL (3.86-4.86); White Blood Count 14.60 thou/uL (4.3-10.9)
[2025-04-03 20:20] LABS: ALT/SGPT 20.0 U/L (13-56); AST/SGOT 11.0 U/L (15-37); Albumin 3.0 g/dL (3.4-5.0); Albumin/Globulin Ratio 0.7 (1.1-1.8); Alkaline Phosphatase 73.0 U/L (45-117); Anion Gap 8.7 mEq/L (5.0-15.0); BUN Blood Urea Nitrogen 72.0 mg/dL (7-18); Globulin 4.3 g/dL (2.3-3.5); Glucose Level 119.0 mg/dL (74-106); Lipase 20.0 U/L (13-75); Potassium 4.7 mEq/L (3.5-5.1)
[2025-04-03] MEDS ORDERED: NA CHLORIDE 0.9% 2,000 ML ONE (21:13)
[2025-04-03] MEDS ORDERED: PIPERACIL/TAZO 3.375 GM VIAL IV ONE (21:14)
[2025-04-03] MEDS ORDERED: NA CHLORIDE 0.9% 100 ML ONE (21:14)
[2025-04-03 21:43] LABS: PT Prothrombin Time 12.2 SECONDS (10-13.0); PTT, Activated Partial Thromb 24.9 SECONDS (27.2-37.4); Protime INR 1.08
[2025-04-03 22:01] LABS: NT PRO-BNP 793.0 pg/mL (<125); Troponin High Sensitivity 15.6 pg/mL (<58.9)
[2025-04-03 22:25] LABS: Sqamous Epithelial <5 /HPF (None Seen); Urine Crystals Unidentified Few /HPF (None Seen); Urine Culture Reflex Order REFLEXED; Urine Microscopic Reflex YN ORDER UMIC
--- NOTE | 2025-04-03 22:31 | RAD REPORT ---
EXAMINATION: ONE VIEW CHEST XR CLINICAL INDICATION: Female, 74 years old.,sepsis TECHNIQUE: Frontal chest projection is submitted. Examination is limited by patient positioning and t echnique. COMPARISON: 12/17/2018 FINDINGS: The lungs are grossly clear although suboptimal inspiratory effort somewhat limits evaluation. No pn eumothorax or sizable effusion. The heart is normal in size. Mediastinal contours are unremarkable. IMPRESSION: No acute intrathoracic abnormalities.
[2025-04-03] MEDS ORDERED: NOREPINEPHRINE BITARTRATE/D5W 4 MG/250 ML BAG IV ONE (22:49)
--- NOTE | 2025-04-03 22:50 | EDPHYS ---
Physician Documentation [facility] Name: Berna Suarez Age: 74 yrs Sex: Female : 1950 Arrival Date: 04/03/2025 Time: 19:36 Bed 3 Private MD: ED Physician Uriel Baron HPI: 04/03 20:02 This 74 yrs old Black Female presents to ER via EMS with complaints of Abnormal Lab tt7 Results. 22:54 It is unclear what the abnormal lab result was, patient was brought in by EMS from her [facility] facility, history obtained from EMS states that apparently the patient has been a little more confused and less talkative than normal, she does have a history of Alzheimer's and dementia but has seemed a bit delirious from her baseline, the patient denies any symptoms, other medical history includes hypertension, dysphagia, intermittent explosive disorder. 22:55 HPI is somewhat limited due to patient's dementia and likely metabolic encephalopathy. tt7 Historical: - Allergies: 19:50 Shrimp; hm5 - Home Meds: 21:46 Depakote ER 125mg Oral Tablet, Extended Release 24 hr 1 tab 2 times daily [Active]; hm5 acetaminophen-codeine 300-30 mg Oral tablet 1 tab 2 times per day for pain [Active]; amlodipine besylate (bulk) 5mg tab 1 tab daily [Active]; Zoloft 25 mg Oral tablet 1 tab daily [Active]; lisinopril 40 mg Oral tablet 1 tab daily [Active]; memantine 14 mg oral Capsule, Sprinkle Ext Rel 24hr Dose Pack 1 cap daily [Active]; meloxicam 15 mg oral tablet 1 tab daily [Active]; hydrochlorothiazide 25 mg Oral tablet 1 tabs daily [Active]; Tylenol 325 mg oral tablet 2 tab every 6 hours for pain [Active]; - PMHx: 19:50 Hypertension; Alzheimer's disease; Dysphagia; hm5 21:43 vitamin d deficiency; polyosteoarthritis; major depressive order; hm5 21:45 intermittent explosive disorder; hm5 - Immunization history:: Adult Immunizations up to date. - Infectious Disease History:: Denies. - Social history:: Smoking status: unknown. ROS: 22:55 Constitutional: negative for fever. Cardiovascular: negative for chest pain. tt7 Respiratory: negative for shortness of breath. Abdomen/GI: negative for abdominal pain, nausea, vomiting, diarrhea. Skin: negative for rash. Exam: 22:56 Constitutional: vital signs reviewed, slightly ill appearing. Head/Face: tt7 normocephalic, atraumatic. Eyes: no conjunctival injection, anicteric sclerae. ENT: mucus membranes dry. Neck: trachea midline, no JVD, no meningismus. Chest/axilla: normal chest wall appearance and motion, nontender, no crepitus. Cardiovascular: regular rate and rhythm, no murmurs, no rubs, no lower extremity edema. Respiratory: normal respiratory effort, no accessory muscle use, lungs CTAB. Abdomen/GI: soft, nondistended, nontender, no guarding or rebound, negative Sandy's sign, no McBurney point tenderness. Back: normal ROM. Skin: slightly clammy, intact, no rash. MS/ Extremity: normal ROM of extremities, no gross deformities. Neuro: Awake with normal speech, somewhat somnolent, moves all extremities, mostly nods head in response to questions Vital Signs: 19:40 Pulse 71; Resp 19; Temp 98.3; Pulse Ox 95% on R/A; Weight 79.38 kg; Height 5 ft. 2 in. hm5 ; Pain 0/10; 20:03 BP 93 / 69; hm5 21:00 BP 85 / 56; Pulse 71; Resp 18; Pulse Ox 95% on R/A; MAP 67 mmHg; hm5 21:39 BP 117 / 71; Pulse 67; Resp 19; Pulse Ox 97% on R/A; MAP 87 mmHg; hm5 22:00 BP 89 / 57; Pulse 71; Resp 20; Pulse Ox 96% on R/A; MAP 69 mmHg; hm5 22:15 BP 87 / 51; Pulse 75; Resp 22; Pulse Ox 95% on R/A; MAP 63 mmHg; hm5 22:45 BP 94 / 55; Pulse 72; Resp 20; Pulse Ox 96% on R/A; MAP 69 mmHg; hm5 23:00 BP 92 / 39; Pulse 73; Resp 20; Pulse Ox 95% on R/A; MAP 54 mmHg; hm5 23:15 BP 107 / 61; Pulse 75; Resp 21; Pulse Ox 95% on R/A; MAP 75 mmHg; 5 23:45 BP 138 / 88; Pulse 81; Resp 20; Pulse Ox 97% on R/A; MAP 88 mmHg; [facility] 04/04 00:15 BP 120 / 53; Pulse 92; Resp 20; Pulse Ox 94% on R/A; MAP 73 mmHg; [facility] 00:30 BP 111 / 53; Pulse 94; Resp 21; Pulse Ox 96% ; MAP 70 mmHg; [facility] 00:45 BP 149 / 99; Pulse 107; Resp 20; Pulse Ox 98% on 2 lpm NC; [facility] 04/03 19:40 Body Mass Index 32.01 (79.38 kg, 157.48 cm) [facility] 04/03 19:40 Pain Scale: Non-Verbal [facility] MDM: 04/03 19:38 Medical Screening Exam initiated tt7 20:03 Differential Diagnosis Leukocytosis, anemia, hyponatremia, hypernatremia, hypokalemia, tt7 hyperkalemia, metabolic acidosis, pancreatitis, acute renal failure, acute liver failure. Data reviewed: vital signs, nurses notes, longterm records. Historians other than the Patient: EMS: EMS was primary source of history. Care significantly affected by the following chronic conditions: Alzheimer's disease, dementia. ED course: Cardiac monitoring was ordered due to the potential for electrolyte abnormality causing dysrythmia. 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 20:39 ED course: I have reviewed the patient's laboratory studies and notable findings tt7 include a leukocytosis of 14,600 and an elevated creatinine of 3.06 with a BUN of 72, this raises some concern for potential infection so we will initiate sepsis workup including blood cultures and give empiric parenteral broad-spectrum antibiotic. Will evaluate patient for potential sources of infection and attempt to review any past medical records to see if patient's elevated creatinine is chronic or acute. 20:54 ED course: I reviewed patient's most recent emergency department visit at our facility tt7 from 02/23/2019 and at that time patient's creatinine was 1.26, I do not have any more recent creatinine results to review so will presume that patient's elevated creatinine of 3.06 is acute. Patient will require inpatient admission for further evaluation and management of potential systemic infection and acute renal failure. I reassessed the patient and currently her blood pressure is 79/52, this along with her physical exam findings and labs raises concern for mixed hypovolemic and septic shock, due to potential for cardiovascular collapse, I am initiating aggressive IV fluid resuscitation with 30 mL/kilogram bolus. Will reassess the patient for improvement and consider initiating Levophed if the patient does not respond to IV fluids. 21:31 ED course: I reassessed the patient, mental status ucnahnged, she is responding to the tt7 IV fluid bolus, her blood pressure is currently 117/71, heart rate of 80, will continue to monitor. I considered ordering CT imaging of the abdomen/pelvis to assess for abdominal sources of infection but decided against this at this time given that patient's abdominal exam is benign, she is not having any vomiting or diarrhea, and because the test would be more sensitive with IV contrast but this potentially could cause further renal injury. 22:41 ED course: I reassessed the patient and her mental status seems to be improving some, tt7 is more talkative and interactive now, however, blood pressure is currently MAP 62 despite 30ml/kg IV fluid bolus. I think the patient would benefit from Levophed infusion to support her hemodynamics and improve renal perfusion in hopes of reversing some degree of kidney injury. Will target MAP of >75. I independently interpreted the patient's EKG performed on 04/03/2025 at 2122. On my interpretation, EKG demonstrates normal sinus rhythm, ventricular rate 78 bpm, normal axis, QRS duration of 112 ms, normal ST segments, T wave inversions in lead III, aVF, and V3, no STEMI. I independently interpreted the patient's chest x-ray. On my interpretation, chest x-ray demonstrates no radiographic evidence of acute cardiopulmonary disease. I spoke with the patient's daughter at bedside, I got further history that she noticed the patient to be slightly more confused, sleepy, and less talkative for the past 2 days, she was concerned and asked the longterm staff to evaluate the patient and consider taking her to the hospital, I took the patient's blood pressure today and noted it to be approximately 75/50 and the daughter asked them to call EMS. She does not have a known history of chronic kidney disease, I updated the patient and her daughter regarding the emergency department workup, laboratory test results, interventions performed, and plan for admission to the intensive care unit. ED course: . 23:06 ED course: I spoke with inpatient physician Dr. Romero regarding the patient's clinical tt7 presentation, vital signs, laboratory test results, emergency department interventions, and my resuscitation plan, accepts the patient for admission to the intensive care unit. 23:46 ED course: This patient has a medical condition that impairs one or more vital organ tt7 systems and has a high probability of imminent or life threatening deterioration in their condition. Management of this patient required my highest level of care and included frequent personal assessment and intervention. I personally spent 35 minutes of critical care time, exclusive of time spent on separately billable procedures, in the evaluation and management of this patient's condition. This critical care time included independently obtaining a history, examining the patient, pulse oximetry, cardiac telemetry monitoring, ordering and review of studies laboratory and imaging studies, development of a management plan, evaluation of patient's response to treatment, frequent reassessment, and discussion with other healthcare providers. 04/03 19:39 Order name: CBC with Diff; Complete Time: 20:33 tt7 04/03 19:39 Order name: CMP; Complete Time: 20:33 tt7 04/03 19:39 Order name: Lipase; Complete Time: 20:33 tt7 04/03 20:47 Order name: BNP; Complete Time: 22:10 tt7 04/03 20:47 Order name: Blood Culture Adult (2) tt7 04/03 20:47 Order name: Lactate w/ 2H reflex if indic.; Complete Time: 22:10 tt7 04/03 20:47 Order name: Protime (+inr); Complete Time: 22:10 tt7 04/03 20:47 Order name: Ptt, Activated; Complete Time: 22:10 tt7 04/03 20:47 Order name: Troponin HS; Complete Time: 22:10 tt7 04/03 20:47 Order name: UA Rfx Edson Cult if indicated; Complete Time: 22:38 tt7 04/03 22:36 Order name: Urine Culture EDMS 04/03 23:11 Order name: CBC with Automated Diff EDMS 04/03 23:11 Order name: CBC with Automated Diff EDMS 04/03 23:11 Order name: Comprehensive Metabolic Panel EDMS 04/03 23:11 Order name: Comprehensive Metabolic Panel EDMS 04/03 23:11 Order name: Troponin High Sensitivity EDMS 04/03 23:11 Order name: Troponin High Sensitivity; Complete Time: 05:25 EDMS 04/03 20:47 Order name: Chest Single View XRAY; Complete Time: 22:38 tt7 04/03 20:47 Order name: EKG; Complete Time: 20:47 tt04/03 19:39 Order name: IV Saline Lock; Complete Time: 20:23 tt7 04/03 19:39 Order name: Labs collected and sent; Complete Time: 20:24 tt7 04/03 19:45 Order name: Cardiac monitoring; Complete Time: 20:25 tt7 04/03 20:47 Order name: EKG - Nurse/Tech; Complete Time: 22:24 tt04/03 20:47 Order name: IV Saline Lock - Large Bore; Complete Time: 20:54 tt7 04/03 20:47 Order name: O2 Per Protocol; Complete Time: 20:54 04/03 20:47 Order name: O2 Sat Monitoring; Complete Time: 20:54 tt04/03 20:47 Order name: Vital Signs; Complete Time: 20:54 tt7 Administered Medications: 21:37 Drug: Piperacillin-Tazobactam IVPB 3.375 grams IVPB once over 60 mins; (mix in NS 100 hm5 mL) Route: IVPB; Infused Over: 60 mins; Site: left wrist; 22:36 Follow up: Response: No adverse reaction; IV Status: Completed infusion; IV Intake: hm5 100ml 21:38 Drug: NS 0.9% IV (30 ml/kg) 30 ml/kg IV at bolus once; Sepsis Protocol; to be given as hm5 a bolus over 90 minutes Route: IV; Rate: bolus; Site: left wrist; 23:00 Follow up: IV Status: Completed infusion; IV Intake: 2300ml hm5 23:05 Drug: Norepinephrine IV 0.1 mcg/kg/min IV at calculated rate See Administration hm5 Instructions; (Standard concentration 4 mg / 250 mL D5W); Recommended max rate 3 mcg/kg/min; Titrate 0.05 mcg/kg/min as often as every 5 minutes to achieve goal (see titration policy); Goal parameter MAP greater than 65 mmHg. Route: IV; Rate: calculated rate; Site: left wrist; 23:51 Follow up: Rate change 0.05 mcg/kg/min hm5 04/04 00:31 Follow up: Rate change 0.1 mcg/kg/min hm5 00:43 Follow up: Rate change 0.05 mcg/kg/min [facility] Disposition: 04/03 23:47 Co-signature as Attending Physician, Uriel Baron DO. tt7 Disposition Summary: 04/03/25 22:49 Hospitalization Ordered Notes: Hospitalization Status: Inpatient Admission tt7 Provider: Shady Romero tt7 Location: Intensive Care Unit tt7 Condition: Guarded tt7 Problem: new tt7 Symptoms: have improved tt7 Bed/Room Type: Standard 7 Room Assignment: 3-(04/03/25 23:29) Diagnosis - Severe sepsis with septic shock tt7 - Hypovolemic shock tt7 - Acute kidney failure, unspecified tt7 - Hypotension, unspecified tt7 Forms: - Medication Reconciliation Form tt7 - SBAR form tt7 - Leadership Thank You Letter tt7 Signatures: Dispatcher [employer] EDOrquidea Ratliff RN RN kl McDaniel, Heather, RN RN [facility] Uriel Baron DO DO tt7 Corrections: (The following items were deleted from the chart) 20:54 20:47 Accucheck ordered. tt7 jj7 23:06 20:54 ED course: I reviewed patient's most recent emergency department visit at our [facility] facility from 02/23/2019 and at that time patient's creatinine was 1.26, I do not have any more recent creatinine results to review so will presume that patient's elevated creatinine of 3.06 is acute. Patient will require inpatient admission for further evaluation and management of potential systemic infection and acute renal failure. I reassessed the patient and currently her blood pressure is 79/52, this raises concern for septic shock and potential for cardiovascular collapse, I am initiating aggressive IV fluid resuscitation with 30 mL/kilogram bolus. Will reassess the patient for improvement and consider initiating Levophed if the patient does not respond to IV fluids. tt7 23:06 21:31 ED course: I reassessed the patient, mental status remains appropriate, she is tt7 responding to the IV fluid bolus, her blood pressure is currently 117/71, heart rate of 80, will continue to monitor. I considered ordering CT imaging of the abdomen/pelvis to assess for abdominal sources of infection but decided against this at this time given that patient's abdominal exam is benign, she is not having any vomiting or diarrhea, and because the test would be more sensitive with IV contrast but this potentially could cause further renal injury. tt7 : 22:41 ED course: I spoke with the patient's daughter at bedside, I got further history tt7 that she noticed the patient to be slightly more confused, sleepy, and less talkative for the past 2 days, she was concerned and asked the longterm staff to evaluate the patient and consider taking her to the hospital, I took the patient's blood pressure today and noted it to be approximately 75/50 and the daughter asked them to call EMS. She does not have a known history of chronic kidney disease, I updated the patient and her daughter regarding the emergency department workup, laboratory test results, interventions performed, and plan for admission to the intensive care unit. tt7 : 22:41 ED course: I spoke with inpatient physician Dr. Romero regarding the patient's tt7 clinical presentation, vital signs, laboratory test results, emergency department interventions, and my resuscitation plan, accepts the patient for admission to the intensive care unit. tt7 : 22:49 tt7 kl
--- NOTE | 2025-04-03 22:50 | ER ---
Nurse's Notes [facility] Name: Berna Suarez Age: 74 yrs Sex: Female : 1950 Arrival Date: 04/03/2025 Time: 19:36 Bed 3 Private MD: Diagnosis: Severe sepsis with septic shock;Hypovolemic shock;Acute kidney failure, unspecified;Hypotension, unspecified Presentation: 04/03 19:40 Chief complaint: EMS states: [facility] called for "abnormal labs" on [facility] Thursday. Unknown what the abnormal labs are. Sts they called due to pt's daughter's request. Coronavirus screen: Client denies travel out of the [place] in the last 14 days. At this time, the client does not indicate any symptoms associated with coronavirus-19. Ebola Screen: Patient negative for fever greater than or equal to 101.5 degrees Fahrenheit, and additional compatible Ebola Virus Disease symptoms Patient denies exposure to infectious person. Patient denies travel to an Ebola-affected area in the 21 days before illness onset. No symptoms or risks identified at this time. Initial Sepsis Screen: Does the patient meet any 2 criteria? No. Patient's initial sepsis screen is negative. Does the patient have a suspected source of infection? No. Patient's initial sepsis screen is negative. Risk Assessment: Do you want to hurt yourself or someone else? Patient reports no desire to harm self or others. Onset of symptoms was April 01, 2025. 19:40 Method Of Arrival: EMS: [facility] 19:40 Acuity: [facility] 3 [facility] Historical: - Allergies: 19:50 Shrimp; [facility] - Home Meds: 21:46 Depakote ER 125mg Oral Tablet, Extended Release 24 hr 1 tab 2 times daily [Active]; [facility] acetaminophen-codeine 300-30 mg Oral tablet 1 tab 2 times per day for pain [Active]; amlodipine besylate (bulk) 5mg tab 1 tab daily [Active]; Zoloft 25 mg Oral tablet 1 tab daily [Active]; lisinopril 40 mg Oral tablet 1 tab daily [Active]; memantine 14 mg oral Capsule, Sprinkle Ext Rel 24hr Dose Pack 1 cap daily [Active]; meloxicam 15 mg oral tablet 1 tab daily [Active]; hydrochlorothiazide 25 mg Oral tablet 1 tabs daily [Active]; Tylenol 325 mg oral tablet 2 tab every 6 hours for pain [Active]; - PMHx: 19:50 Hypertension; Alzheimer's disease; Dysphagia; hm5 21:43 vitamin d deficiency; polyosteoarthritis; major depressive order; hm5 21:45 intermittent explosive disorder; hm5 - Immunization history:: Adult Immunizations up to date. - Infectious Disease History:: Denies. - Social history:: Smoking status: unknown. Screenin:43 [facility] ED Fall Risk Assessment (Adult) History of falling in the last 3 months, 5 including since admission No falls in past 3 months (0 pts) Confusion or Disorientation Yes (5 pts) Intoxicated or Sedated No (0 pts) Impaired Gait Yes (1 pt) Mobility Assist Device Used No (0 pt) Altered Elimination Yes (1 pt) Score/Fall Risk Level 3 or more points = High Risk Oriented to surroundings, Maintained a safe environment, Assessed \\T\\ reinforced patient's understanding of fall precautions, Hourly rounding (assess needs \\T\\ fall precautionary measures) done, Utilized family, sitter, or virtual fan installer as indicated. Abuse screen: Denies threats or abuse. Denies injuries from another. Nutritional screening: No deficits noted. Tuberculosis screening: No symptoms or risk factors identified. Assessment: 20:45 General: Appears in no apparent distress. comfortable, well groomed, well developed, hm5 well nourished, Behavior is calm, cooperative. Pain: Denies pain. Neuro: Level of Consciousness is awake, alert, obeys commands, confused, history of alzheimers dementia. daughter reports pt has been talking less than usual.. Oriented to person. Cardiovascular: Rhythm is sinus rhythm Parent/caregiver reports patient has had care home told daughter that pt's blood pressure was in the 70s systolic but then told her it was an inaccurate reading. bp 130/60 per ems. Respiratory: No deficits noted. GI: No deficits noted. No signs and/or symptoms were reported involving the gastrointestinal system. : Parent/caregiver report the patient having daughter reports care home told her that pt's labs showed "something wrong with her kidneys" on 04/01/25. EENT: No deficits noted. No signs and/or symptoms were reported regarding the EENT system. Derm: No deficits noted. No signs and/or symptoms reported regarding the dermatologic system. Musculoskeletal: No deficits noted. No signs and/or symptoms reported regarding the musculoskeletal system. 21:39 Reassessment: first set of blood cultures obtained and sent at 21:15, second set hm5 obtained and sent at 21:30. 04/04 01:12 Reassessment: pt had run of vtach on monitor, bp increased, levophed titrated back hm5 down, Dr. Baron at bedside. EKG to be repeated, labs to be sent. Vital Signs: 04/03 19:40 Pulse 71; Resp 19; Temp 98.3; Pulse Ox 95% on R/A; Weight 79.38 kg; Height 5 ft. 2 in. hm5 ; Pain 0/10; 20:03 BP 93 / 69; hm5 21:00 BP 85 / 56; Pulse 71; Resp 18; Pulse Ox 95% on R/A; MAP 67 mmHg; hm5 21:39 BP 117 / 71; Pulse 67; Resp 19; Pulse Ox 97% on R/A; MAP 87 mmHg; hm5 22:00 BP 89 / 57; Pulse 71; Resp 20; Pulse Ox 96% on R/A; MAP 69 mmHg; hm5 22:15 BP 87 / 51; Pulse 75; Resp 22; Pulse Ox 95% on R/A; MAP 63 mmHg; hm5 22:45 BP 94 / 55; Pulse 72; Resp 20; Pulse Ox 96% on R/A; MAP 69 mmHg; hm5 23:00 BP 92 / 39; Pulse 73; Resp 20; Pulse Ox 95% on R/A; MAP 54 mmHg; hm5 23:15 BP 107 / 61; Pulse 75; Resp 21; Pulse Ox 95% on R/A; MAP 75 mmHg; hm5 23:45 BP 138 / 88; Pulse 81; Resp 20; Pulse Ox 97% on R/A; MAP 88 mmHg; 5 04/04 00:15 BP 120 / 53; Pulse 92; Resp 20; Pulse Ox 94% on R/A; MAP 73 mmHg; hm5 00:30 BP 111 / 53; Pulse 94; Resp 21; Pulse Ox 96% ; MAP 70 mmHg; hm5 00:45 BP 149 / 99; Pulse 107; Resp 20; Pulse Ox 98% on 2 lpm NC; 5 04/03 19:40 Body Mass Index 32.01 (79.38 kg, 157.48 cm) 5 04/03 19:40 Pain Scale: Non-Verbal [facility] ED Course: 04/03 19:38 Patient arrived in ED. rv1 19:38 Uriel Baron DO is Attending Physician. tt7 19:39 Marium Fitzpatrick, RN is Primary Nurse. 5 19:50 Triage completed. hm5 20:24 Initial lab(s) drawn, by me, sent to lab. Inserted saline lock: 20 gauge in left vk forearm, using aseptic technique. Blood collected. Flushed with 10 mL NS. 21:15 First set of blood cultures drawn by me. vk 21:15 quality assurance monitor final on. Pulse ox on. NIBP on. hm5 21:23 Chest Single View XRAY In Process Unspecified. EDMS 21:30 Second set of blood cultures drawn by me. vk 21:38 No provider procedures requiring assistance completed. hm5 21:38 Patient has correct armband on for positive identification. Bed in low position. Call 5 light in reach. Side rails up X2. Adult w/ patient. Provided Education on: plan of care. 21:50 Delgado cath inserted, using sterile technique, 16 Fr., by me, by kennel manager, balloon hm5 inflated, to gravity drainage, urine specimen collected. returned nick urine. Patient tolerated well. 22:11 Blood Culture Adult (2) Sent. vk 22:13 UA Rfx Edson Cult if indicated Sent. vk 22:20 EKG done, by ED staff, reviewed by Uriel Baron DO. 5 22:47 Shady Romero MD is Hospitalizing Provider. tt7 23:58 Arm band placed on right wrist. [facility] 04/04 01:20 Patient admitted, IV remains in place. hm5 Administered Medications: 04/03 21:37 Drug: Piperacillin-Tazobactam IVPB 3.375 grams IVPB once over 60 mins; (mix in NS 100 hm5 mL) Route: IVPB; Infused Over: 60 mins; Site: left wrist; 22:36 Follow up: Response: No adverse reaction; IV Status: Completed infusion; IV Intake: hm5 100ml 21:38 Drug: NS 0.9% IV (30 ml/kg) 30 ml/kg IV at bolus once; Sepsis Protocol; to be given as hm5 a bolus over 90 minutes Route: IV; Rate: bolus; Site: left wrist; 23:00 Follow up: IV Status: Completed infusion; IV Intake: 2300ml hm5 23:05 Drug: Norepinephrine IV 0.1 mcg/kg/min IV at calculated rate See Administration [facility] Instructions; (Standard concentration 4 mg / 250 mL D5W); Recommended max rate 3 mcg/kg/min; Titrate 0.05 mcg/kg/min as often as every 5 minutes to achieve goal (see titration policy); Goal parameter MAP greater than 65 mmHg. Route: IV; Rate: calculated rate; Site: left wrist; 23:51 Follow up: Rate change 0.05 mcg/kg/min hm5 04/04 00:31 Follow up: Rate change 0.1 mcg/kg/min hm5 00:43 Follow up: Rate change 0.05 mcg/kg/min 5 Intake: 04/03 22:36 IV: 100ml; Total: 100ml. hm5 23:00 IV: 2300ml; Total: 2400ml. [facility] Outcome: 22:49 Decision to Hospitalize by Provider. tt7 04/04 01:20 Admitted to ICU accompanied by nurse, via stretcher, with oxygen, on monitor, with [facility] chart, Report called to [address] Condition: stable Instructed on the need for admit, 01:50 Patient left the ED. [facility] Signatures: Dispatcher [employer] EDMahsa Ricardo rvLynda Harp Heather, [address] RN [facility] Uriel Baron DO DO tt7 Corrections: (The following items were deleted from the chart) 04/03 23:55 22:00 BP 89 / 57; Pulse 71bpm; Resp 20bpm; Pulse Ox 96% RA; 5 5 23:55 22:45 BP 94 / 55; Pulse 72bpm; Resp 20bpm; Pulse Ox 96% RA; [place] [id number] 23:55 23:15 BP 107 / 61; Pulse 75bpm; Resp 21bpm; Pulse Ox 95% RA; [facility] 23:56 21:39 BP 117 / 71; Pulse 67bpm; Resp 19bpm; Pulse Ox 97% RA; [facility] 23:56 21:00 BP 85 / 57; Pulse 71bpm; Resp 18bpm; Pulse Ox 95% RA; hm5 hm5 23:57 23:56 BP 87 / 51; Pulse 75bpm; Resp 22bpm; Pulse Ox 95% RA; MAP 63 mmHg; hm5 hm5
[2025-04-03] MEDS ORDERED: ONDANSETRON 4 MG/2 ML VIAL IV PRN (23:06)
--- NOTE | 2025-04-03 23:06 | P.HP ---
Certification for Inpatient Patient admitted to: Inpatient With expected LOS: >2 Midnights Practitioner: I am a practitioner with admitting privileges, knowledge of patient current condition, hospital course, and medical plan of care. Services: Services provided to patient in accordance with Admission requirements found in Title 42 Section 412.3 of the Code of Federal Regulations Patient History Date of Service: 04/04/25 Reason for admission: Hypotension History of Present Illness: 74 yrs old Female with past medical history of hypertension, hyperlipidemia, dementia, vitamin D deficiency, polyosteoarthritis, major depression, history of dysphagia, who is a resident in long term was brought to ER with generalized weakness and altered level of consciousness. Patient is demented hence most of the history is obtained from the chart review and also talking with the ER physician and history obtained from EMS states that apparently the patient has been a little more confused and less talkative than normal, she does have a history of Alzheimer's and dementia but has seemed a bit delirious from her baseline, the patient denies any symptoms Patient was assessed in the ER and was found to be hypotensive and hypovolemic hence was started on IV hydration and was admitted to the ICU for further management. Allergies Iodine-Iodine Containing Allergy (Uncoded 01/10/15 15:57) Unknown Home medications list reviewed: Yes Home Medications: Acetaminophen [Tylenol] 650 mg PO Q6HP PRN 04/04/25 Acetaminophen with Codeine [Acetaminophen-Cod #3 Tablet] 1 each PO BID 04/04/25 Amlodipine [Norvasc] 2.5 mg PO DAILY 04/04/25 Amlodipine [Norvasc] 5 mg PO DAILY 04/04/25 Divalproex [Depakote Sprinkle] 125 mg PO BID 04/04/25 Mag Hydroxide 8% [Milk Of Magnesia] 30 ml PO DAILYPRN PRN 04/04/25 Meloxicam 15 mg PO DAILY 04/04/25 Memantine HCl [Memantine HCl ER] 14 mg PO DAILY 04/04/25 Ondansetron [Zofran] 4 mg PO Q8H PRN 04/04/25 Zoloft 25 1 tab PO DAILY 04/04/25 hydroCHLOROthiazide [Hydrodiuril] 25 mg PO DAILY 04/04/25 lisinopriL [Lisinopril] 40 mg PO DAILY 04/04/25 - Past Medical/Surgical History Past Medical History: Reviewed- Non-Contributory Past Surgical History: Reviewed- Non-Contributory - Family History Mother -: Hypertension, Diabetes, Cancer - Social History Smoking Status: Never smoker Review of Systems is unable to be obtained Physical Examination - Vital Signs Temperature: 98.3 F Blood Pressure: 103/65 Pulse: 72 Respirations: 18 Pulse Ox (%): 94 - Physical Exam General: Alert, Confused HEENT: Atraumatic, Normocephalic Neck: Supple Respiratory: Clear to auscultation bilaterally, Normal air movement Cardiovascular: Regular rate/rhythm, Normal S1 S2 Capillary refill: <2 Seconds Gastrointestinal: Soft and benign, W/out hepatosplenomegaly Musculoskeletal: No clubbing Integumentary: No rashes Neurological: Other (Awake confused ) - Studies Laboratory Data (last 24 hrs) 04/03/25 04/03/25 04/03/25 21:15 19:58 19:58 WBC 14.60 H Hgb 11.8 L Hct 36.6 Plt Count 204 PT 12.2 INR 1.08 APTT 24.9 L Sodium 140 Potassium 4.7 BUN 72 H Creatinine 3.06 H Glucose 119 H Total Bilirubin 0.4 AST 11 L ALT 20 Alkaline Phosphatase 73 Lipase 20 Assessment and Plan - Plan Acute encephalopathy metabolic Baseline dementia Monitor vital signs closely Leukocytosis Shock possibly to hypovolemia/sepsis Started Levophed and titrate IV hydration UTI Started on IV antibiotic Obtain cultures Change therapeutic as per sensitivity Dementia History of hypertension Hyperlipidemia Arthritis Continue home medications and titrate as needed GI/DVT prophylaxis Advanced directive full code Discharge Plan: Residential Plan to discharge in: 48 Hours - Advance Directives Does patient have a Living Will: No Does patient have a Durable POA for Healthcare: No - Code Status/Comfort Care Code Status: Full Code Time Spent Managing Pts Care (In Minutes): 49
[2025-04-04] MEDS: NOREPINEPHRINE 4 MG in D5W 250 ML IV SCH (01:40)
[2025-04-04] MEDS: NA CHLORIDE 0.9% 1,000 ML IV SCH (02:32)
[2025-04-04 06:11] LABS: Absolute Lymphocytes (CBC) 1.3 K/uL (0.7-4.9); Hematocrit 33.8 % (36.0-45.0); Hemoglobin 11.3 g/dL (12.0-15.0); MCH 31.1 pg (27.0-35.0); MCHC 33.4 g/dL (32.0-36.0); MCV 93.3 fL (80-100); MPV 9.5 fL (7.6-11.3); Nucleated RBC Absolute Count 0.0 (0-0); Nucleated Red Blood Cells % 0.1 % (0-0); RBC Red Blood Cell Count 3.63 M/uL (3.86-4.86); White Blood Count 15.70 thou/uL (4.3-10.9)
[2025-04-04 06:31] LABS: ALT/SGPT < 14 U/L (13-56); AST/SGOT 11 U/L (15-37); Albumin 2.8 g/dL (3.4-5.0); Albumin/Globulin Ratio 0.7 (1.1-1.8); Alkaline Phosphatase 71 U/L (45-117); Anion Gap 10.3 mEq/L (5.0-15.0); BUN Blood Urea Nitrogen 62 mg/dL (7-18); Globulin 4.1 g/dL (2.3-3.5); Glucose Level 91 mg/dL (74-106); Potassium 4.3 mEq/L (3.5-5.1)
[2025-04-04] MEDS: PNEUMOCOCCAL VACCINE 0.5 ML IMVAC ONE (07:49)
[2025-04-04] MEDS: MORPHINE 2 MG/ML SYR IV PRN (07:51)
[2025-04-04] MEDS: HEPARIN 5000 UNIT/ML 1 ML VIAL SQ SCH (09:42)
[2025-04-04] MEDS: PIPER TAZO 3.375 GM in NA CHLORIDE 0.9% 100 ML IV SCH (09:42)
--- NOTE | 2025-04-04 13:30 | RAD REPORT ---
EXAMINATION: CT Abdomen Pelvis Wo Contrast CLINICAL INDICATION: Female, 74 years old. Abdominal pain and diarrhea, sepsis TECHNIQUE: CT abdomen and pelvis was performed, without IV contrast, as per department protocol. Axia l, sagittal and coronal reconstructions were obtained. One or more of the following dose reduction techniques were used: Automated exposure control, adjustment of the mA and kV according to the patien t size, and iterative reconstruction. Unless otherwise specified, incidental findings do not require dedicated imaging follow-up. COMPARISON: 02/23/2019 FINDINGS: The lack of intravenous contrast limits the sensitivity of this exam for evaluation of solid visceral organs, vascular structures, and retroperitoneum. LOWER CHEST: The visualized lung bases are clear. LIVER: Normal in size and contour. No focal lesion. BILIARY SYSTEM: Mild layering radiopaque sludge. No suspicious abnormalities. SPLEEN: Normal size. No focal lesion. PANCREAS: No mass, ductal dilation, or juliana-pancreatic fluid. ADRENALS: Normal; no mass. KIDNEYS AND URETERS: Normal size and contour. 2 mm left upper pole nonobstructing calculus No hydrone phrosis. URINARY BLADDER: Decompressed with Delgado catheter in place. GASTROINTESTINAL TRACT: Segmental wall thickening along the mid to distal sigmoid colon and rectum. E keturah along the presacral space. No evidence of bowel obstruction, significant free fluid, free air or abscess. APPENDIX: Normal appendix. LYMPH NODES: No lymphadenopathy. MUSCULOSKELETAL: No acute or suspicious osseous abnormality. ADDITIONAL FINDINGS: Diastasis recti. Small umbilical hernia containing fat. Fibroid retroflexed uter us. IMPRESSION: Segmental wall thickening along the mid to distal sigmoid colon and rectum, findings suggest infectio us or inflammatory proctocolitis. Left upper renal pole nonobstructing 2 mm calculus. Other incidental findings as above.
--- NOTE | 2025-04-04 13:33 | RAD REPORT ---
EXAM: CT Head Brain Wo Cont HISTORY: Dementia, rule out stroke COMPARISON: 01/17/2012 TECHNIQUE: Multiple contiguous axial images were obtained for a CT of the brain without contrast. Sag ittal and coronal reformats were performed. One or more of the following dose reduction techniques were used: Automated exposure control, adjus tment of the mA and kV according to patient size, and iterative reconstruction. Unless otherwise specified, incidental findings do not require dedicated imaging follow-up. FINDINGS: No evidence of hydrocephalus, intracranial hemorrhage, or extra-axial fluid collection. Moderate brain atrophy with moderate periventricular and deep white matter chronic microvascular isc hemic changes present. The calvarium is intact. The visualized paranasal sinuses and mastoid air cells are essentially clear . IMPRESSION: No evidence of acute intracranial abnormality. Chronic findings as above. If there is concern for acu te ischemia, additional evaluation by stroke protocol MRI would provide improved assessment.
--- NOTE | 2025-04-04 16:27 | P.PN ---
Date of Service: 04/04/25 Subjective: Weaning Levophed. At bedside. She is feeling better now. Intermittent confusion persists. She is making urine. Review of Systems is unable to be obtained Physical Examination - Vital Signs Temperature: 98.3 F Blood Pressure: 103/65 Pulse: 72 Respirations: 18 Pulse Ox (%): 94 - Physical Exam General: Alert, Confused HEENT: Atraumatic, Normocephalic Neck: Supple Respiratory: Clear to auscultation bilaterally, Normal air movement Cardiovascular: Regular rate/rhythm, Normal S1 S2 Capillary refill: <2 Seconds Gastrointestinal: Soft and benign, W/out hepatosplenomegaly Musculoskeletal: No clubbing Integumentary: No rashes Neurological: Other (Awake confused ) - Studies Laboratory Data (last 24 hrs) 04/03/25 04/03/25 04/03/25 21:15 19:58 19:58 WBC 14.60 H Hgb 11.8 L Hct 36.6 Plt Count 204 PT 12.2 INR 1.08 APTT 24.9 L Sodium 140 Potassium 4.7 BUN 72 H Creatinine 3.06 H Glucose 119 H Total Bilirubin 0.4 AST 11 L ALT 20 Alkaline Phosphatase 73 Lipase 20 Assessment and Plan 04/04 - Mentation slowly improving - Proctocolitis: Continue IV antibiotics, urine and blood cultures pending - Leukocytosis persists, consult infectious disease - Wean Levophed as able Acute encephalopathy metabolic Baseline dementia Monitor vital signs closely Leukocytosis Shock possibly to hypovolemia/sepsis Started Levophed and titrate IV hydration UTI Started on IV antibiotic Obtain cultures Change therapeutic as per sensitivity Dementia History of hypertension Hyperlipidemia Arthritis Continue home medications and titrate as needed GI/DVT prophylaxis Advanced directive full code Discharge Plan: Detention Plan to discharge in: 48 Hours - Advance Directives Does patient have a Living Will: No Does patient have a Durable POA for Healthcare: No - Code Status/Comfort Care Code Status: Full Code
[2025-04-04] MEDS ORDERED: NOREPINEPHRINE BITARTRATE/D5W 4 MG/250 ML BAG IV SCH (17:00)
--- NOTE | 2025-04-04 20:31 | CON ---
History Of Present Illness: The patient in the ICU for urosepsis. She has significant past medical history of hypertension, hyperlipidemia, dementia, vitamin D deficiency, polyosteoarthritis, major de pression, history of dysphagia, coming into the emergency room with generalized weakness and altered level of consciousness. The patient is not able to give much of the history. Most of the history wa s obtained through medical records and staff at the bedside. The patient denies any headache, nausea , vomiting, chest pain, abdominal pain, constipation, or diarrhea. Past Medical History: As per HPI. Social History: Nonsmoker. Nondrinker. Family History: Noncontributory except hypertension and diabetes and cancer. Medications: Include Zosyn. See MARs for other medications. Allergies: IODINE. Review of Systems: A 10-point review was performed. Physical Examination: General: This is a 74-year-old female, lying in bed, not in any acute cardiopulmonary distress. Vital Signs: Temperature 97, pulse 80, respirations 18, blood pressure 105/58, on 2 L nasal cannula. HEENT: Unremarkable. Neck: Supple. Lungs: Basal crackles. Heart: S1, S2. Regular. Abdomen: Soft, nontender. Bowel sounds present. Extremities: Trace edema. Laboratory Data: Shows WBC 15,000, hemoglobin 11.3, platelets are 223, BUN of 62, creatinine 2.28, a lbumin level of 2.8. CT of her head shows patient has no evidence of intracranial abnormalities. CT of the abdomen and pelvis shows patient has segmental wall thickening along the mid and to distal si gmoid colon and rectum, finding of inflammatory proctocolitis, left upper pole renal for nonobstructe d 2 mm calculus. Urinalysis shows patient has 10 to 20 wbc. Blood cultures and urine cultures are p ending. Assessment And Plan: 1. This is a 74-year-old female coming in with altered mental status and hypotension, currently on va sopressor, norepinephrine, and Zosyn. Abdominal and pelvis CT shows patient has segmental wall thick ening along the mid and distal sigmoid colon and rectum suggestive of inflammatory proctocolitis. Co nsider getting GI evaluation. Lab data shows leukocytosis, leukorrhea. Cultures are pending. 2. Renal insufficiency. 3. Anemia of chronic disease. Continue empiric antibiotic pending culture results. Monitor signs of infection with WBC and fever t rends. Thank you, Dr. Hogue, for consult. NF/MODL Voice ID: [id number] Report ID: [id number]
[2025-04-04] MEDS: MEMANTINE HCL 10 MG TABLET PO SCH (20:49)
[2025-04-04] MEDS: DIVALPROEX NA 125 MG CAP PO SCH (20:49)
[2025-04-05 05:27] VITALS: BMI 35.6
[2025-04-05 05:45] LABS: Absolute Lymphocytes (CBC) 1.2 K/uL (0.7-4.9); Hematocrit 31.0 % (36.0-45.0); Hemoglobin 10.5 g/dL (12.0-15.0); MCH 31.4 pg (27.0-35.0); MCHC 34.0 g/dL (32.0-36.0); MCV 92.2 fL (80-100); MPV 8.9 fL (7.6-11.3); Nucleated RBC Absolute Count 0.0 (0-0); Nucleated Red Blood Cells % 0.1 % (0-0); RBC Red Blood Cell Count 3.36 M/uL (3.86-4.86); White Blood Count 10.70 thou/uL (4.3-10.9)
[2025-04-05 05:58] LABS: Anion Gap 8.6 mEq/L (5.0-15.0); BUN Blood Urea Nitrogen 36.0 mg/dL (7-18); Glucose Level 96.0 mg/dL (74-106); Magnesium 2.2 mg/dL (1.6-2.4); Potassium 4.6 mEq/L (3.5-5.1)
[2025-04-05] MEDS: POTASS/SODIUM PHOSPHATE 1 PKT POWD.PACK PO SCH (08:24)
[2025-04-05] MEDS: SERTRALINE HCL 50 MG TAB PO SCH (08:24)
[2025-04-05 10:32] LABS: C.diff Antigen/Toxin Ag neg : Tox neg (NEG : NEG); CDIFF INTERNAL NEG CONTROL White Background (WHITE BKGD); STOOL CONSISTENCY Liquid/Semi-Solid
--- NOTE | 2025-04-05 12:13 | P.PN ---
Date of Service: 04/05/25 subjective: wbc 10.7 no fever today. VS stable. off levophed. GI consulted today objective Temp Pulse Resp BP Pulse Ox 97.6 F 81 19 136/75 98 04/05/25 08:00 04/05/25 08:00 04/05/25 08:00 04/05/25 08:00 04/05/25 08:00 - Physical Exam General: Alert, Confused HEENT: Atraumatic, Normocephalic Neck: Supple Respiratory: Clear to auscultation bilaterally, Normal air movement Cardiovascular: Regular rate/rhythm, Normal S1 S2 Capillary refill: <2 Seconds Gastrointestinal: Soft and benign, NT, ND Labs: wbc 10.7, Hgb 10.5, bun 36, cr 1.25, albumin 2.8 04/03/25 21:30 Blood - Blood Aerobic Blood Culture - Preliminary No growth in 24 hours. 04/03/25 21:30 Blood - Blood Anaerobic Blood Culture - Preliminary No growth in 24 hours. 04/03/25 21:15 Blood - Blood Aerobic Blood Culture - Preliminary No growth in 24 hours. 04/03/25 21:15 Blood - Blood Anaerobic Blood Culture - Preliminary No growth in 24 hours. Assessment and Plan Proctocolitis Pyuria Dementia renal insufficiency anemia of chronic disease recommend switching zosyn to doxycycline. consulted GI, appreciate input Will monitor signs of infection with wbc and fever trend case discussed and in agreement with Dr Saldaña
--- NOTE | 2025-04-05 16:00 | P.PN ---
Date of Service: 04/05/25 Subjective: Her daughter is at bedside. Levophed has been weaned off. We discussed her eating and getting stronger. She will be downgraded to the floor. She is moving her bowels regularly. Review of Systems is unable to be obtained Physical Examination - Vital Signs Temperature: 98.3 F Blood Pressure: 103/65 Pulse: 72 Respirations: 18 Pulse Ox (%): 94 - Physical Exam General: Alert, Confused HEENT: Atraumatic, Normocephalic Neck: Supple Respiratory: Clear to auscultation bilaterally, Normal air movement Cardiovascular: Regular rate/rhythm, Normal S1 S2 Capillary refill: <2 Seconds Gastrointestinal: Soft and benign, W/out hepatosplenomegaly Musculoskeletal: No clubbing Integumentary: No rashes Neurological: Other (Awake confused ) - Studies Laboratory Data (last 24 hrs) 04/03/25 04/03/25 04/03/25 21:15 19:58 19:58 WBC 14.60 H Hgb 11.8 L Hct 36.6 Plt Count 204 PT 12.2 INR 1.08 APTT 24.9 L Sodium 140 Potassium 4.7 BUN 72 H Creatinine 3.06 H Glucose 119 H Total Bilirubin 0.4 AST 11 L ALT 20 Alkaline Phosphatase 73 Lipase 20 Assessment and Plan 04/05 - Off Levophed, downgrade to floor - Now on, urine culture with E. coli, will switch to Augmentin per Dr. Saldaña - Appreciate GI recommendations for proctocolitis - Add free water every 6 hours 200 cc cc for hypernatremia - Creatinine continues to improve - Hypophosphatemia: Replace phosphorus 04/04 - Mentation slowly improving - Proctocolitis: Continue IV antibiotics, urine and blood cultures pending - Leukocytosis persists, consult infectious disease - Wean Levophed as able Acute encephalopathy metabolic Baseline dementia Monitor vital signs closely Leukocytosis Shock possibly to hypovolemia/sepsis Started Levophed and titrate IV hydration UTI Started on IV antibiotic Obtain cultures Change therapeutic as per sensitivity Dementia History of hypertension Hyperlipidemia Arthritis Continue home medications and titrate as needed GI/DVT prophylaxis Advanced directive full code Discharge Plan: Halfway Plan to discharge in: 48 Hours - Advance Directives Does patient have a Living Will: No Does patient have a Durable POA for Healthcare: No - Code Status/Comfort Care Code Status: Full Code
[2025-04-05] MEDS ORDERED: DOXYCYCLINE 100 MG in NA CHLORIDE 0.9% 100 ML IVPB SCH (21:00)
[2025-04-05] MEDS: AMOX/K CLAV 875 MG TAB PO SCH (21:02)
[2025-04-06] MEDS: AMLODIPINE 5 MG TAB PO SCH (08:25)
[2025-04-06] MEDS: hydroCHLOROthiazide 25 MG TAB PO SCH (08:26)
[2025-04-06 08:33] LABS: Absolute Lymphocytes (CBC) 1.4 K/uL (0.7-4.9); Hematocrit 35.4 % (36.0-45.0); Hemoglobin 12.1 g/dL (12.0-15.0); MCH 31.2 pg (27.0-35.0); MCHC 34.3 g/dL (32.0-36.0); MCV 90.9 fL (80-100); MPV 8.8 fL (7.6-11.3); Nucleated RBC Absolute Count 0.0 (0-0); Nucleated Red Blood Cells % 0.1 % (0-0); RBC Red Blood Cell Count 3.89 M/uL (3.86-4.86); White Blood Count 9.70 thou/uL (4.3-10.9)
[2025-04-06 08:53] LABS: ALT/SGPT 17.0 U/L (13-56); AST/SGOT 16.0 U/L (15-37); Albumin 2.6 g/dL (3.4-5.0); Albumin/Globulin Ratio 0.6 (1.1-1.8); Alkaline Phosphatase 71.0 U/L (45-117); Anion Gap 7.9 mEq/L (5.0-15.0); BUN Blood Urea Nitrogen 14.0 mg/dL (7-18); Globulin 4.2 g/dL (2.3-3.5); Glucose Level 93.0 mg/dL (74-106); Potassium 3.9 mEq/L (3.5-5.1)
[2025-04-06] MEDS: LOPERAMIDE HCL 2 MG CAPSULE PO STA (13:26)
--- NOTE | 2025-04-06 16:35 | P.PN ---
Date of Service: 04/06/25 Subjective: Elevated blood pressure overnight. Patient is sleeping on arrival. No acute events. Her daughter is at bedside. Denies fevers and chills. Review of Systems is unable to be obtained Physical Examination - Vital Signs Temperature: 98.3 F Blood Pressure: 103/65 Pulse: 72 Respirations: 18 Pulse Ox (%): 94 - Physical Exam General: Alert, Confused HEENT: Atraumatic, Normocephalic Neck: Supple Respiratory: Clear to auscultation bilaterally, Normal air movement Cardiovascular: Regular rate/rhythm, Normal S1 S2 Capillary refill: <2 Seconds Gastrointestinal: Soft and benign, W/out hepatosplenomegaly Musculoskeletal: No clubbing Integumentary: No rashes Neurological: Other (Awake confused ) - Studies Laboratory Data (last 24 hrs) 04/03/25 04/03/25 04/03/25 21:15 19:58 19:58 WBC 14.60 H Hgb 11.8 L Hct 36.6 Plt Count 204 PT 12.2 INR 1.08 APTT 24.9 L Sodium 140 Potassium 4.7 BUN 72 H Creatinine 3.06 H Glucose 119 H Total Bilirubin 0.4 AST 11 L ALT 20 Alkaline Phosphatase 73 Lipase 20 Assessment and Plan 04/06 - Lab work reviewed - Urine culture with E. coli, continue Augmentin - Hypernatremia resolved - Acute kidney injury resolved - Hypophosphatemia resolved - PT/OT recommendations 04/05 - Off Levophed, downgrade to floor - Now on, urine culture with E. coli, will switch to Augmentin per Dr. Saldaña - Appreciate GI recommendations for proctocolitis - Add free water every 6 hours 200 cc cc for hypernatremia - Creatinine continues to improve - Hypophosphatemia: Replace phosphorus 04/04 - Mentation slowly improving - Proctocolitis: Continue IV antibiotics, urine and blood cultures pending - Leukocytosis persists, consult infectious disease - Wean Levophed as able Acute encephalopathy metabolic Baseline dementia Monitor vital signs closely Leukocytosis Shock possibly to hypovolemia/sepsis Started Levophed and titrate IV hydration UTI Started on IV antibiotic Obtain cultures Change therapeutic as per sensitivity Dementia History of hypertension Hyperlipidemia Arthritis Continue home medications and titrate as needed GI/DVT prophylaxis Advanced directive full code Discharge Plan: [facility] Plan to discharge in: 48 Hours - Advance Directives Does patient have a Living Will: No Does patient have a Durable POA for Healthcare: No - Code Status/Comfort Care Code Status: Full Code
[2025-04-06] MEDS: LOPERAMIDE HCL 2 MG CAPSULE PO PRN (20:56)
[2025-04-06 21:34] VITALS: O2SAT 99
[2025-04-07] MEDS: SMZ./TMP. 800/160 MG TABLET PO SCH (08:52)
[2025-04-07] MEDS: ACETAMINOPHEN 325 MG TABLET PO PRN (11:52)
[2025-04-07 12:25] VITALS: BP 130/67; TEMP 98.3
--- NOTE | 2025-04-07 12:36 | P.PN ---
Date of Service: 04/07/25 subjective: no acute overnight event. no fever today. VS stable. objective Temp Pulse Resp BP Pulse Ox 97.9 F 82 16 158/74 H 97 04/07/25 08:00 04/07/25 08:00 04/07/25 08:00 04/07/25 08:00 04/07/25 08:00 - Physical Exam General: Alert, Confused HEENT: Atraumatic, Normocephalic Neck: Supple Respiratory: Clear to auscultation bilaterally, Normal air movement Cardiovascular: Regular rate/rhythm, Normal S1 S2 Capillary refill: <2 Seconds Gastrointestinal: Soft and benign, NT, ND Labs: wbc 10.7, Hgb 10.5, bun 36, cr 1.25, albumin 2.8 04/03/25 21:30 Blood - Blood Aerobic Blood Culture - Preliminary No growth in 24 hours. 04/03/25 21:30 Blood - Blood Anaerobic Blood Culture - Preliminary No growth in 24 hours. 04/03/25 21:15 Blood - Blood Aerobic Blood Culture - Preliminary No growth in 24 hours. 04/03/25 21:15 Blood - Blood Anaerobic Blood Culture - Preliminary No growth in 24 hours. Assessment and Plan Proctocolitis E coli UTI Dementia renal insufficiency anemia of chronic disease recommend doxycyline 100 mg bid x 7 days for proctocolitis and bactrim x [address]TI[address] Per [address] Hogue, recommend patient to f/u with GI outpatient Will monitor signs of infection with wbc and fever trend case discussed and in agreement with Dr Saldaña
--- NOTE | 2025-04-07 14:59 | P.DS ---
Admission Date: 04/03/25 Discharge Date: 04/07/25 Disposition: TRANSFER TO JAIL Reason for Admission: Hypotension Brief History of Present Illness: 74 yrs old Female with past medical history of hypertension, hyperlipidemia, dementia, vitamin D deficiency, polyosteoarthritis, major depression, history of dysphagia, who is a resident in group home was brought to ER with generalized weakness and altered level of consciousness. Patient is demented hence most of the history is obtained from the chart review and also talking with the ER physician and history obtained from EMS states that apparently the patient has been a little more confused and less talkative than normal, she does have a history of Alzheimer's and dementia but has seemed a bit delirious from her baseline, the patient denies any symptoms Patient was assessed in the ER and was found to be hypotensive and hypovolemic hence was started on IV hydration and was admitted to the ICU for further management. Hospital Course: Physical Examination - Vital Signs Temperature: 98.3 F Blood Pressure: 103/65 Pulse: 72 Respirations: 18 Pulse Ox (%): 94 - Physical Exam General: Alert, Confused HEENT: Atraumatic, Normocephalic Neck: Supple Respiratory: Clear to auscultation bilaterally, Normal air movement Cardiovascular: Regular rate/rhythm, Normal S1 S2 Capillary refill: <2 Seconds Gastrointestinal: Soft and benign, W/out hepatosplenomegaly Musculoskeletal: No clubbing Integumentary: No rashes Neurological: Other (Awake confused ) - Studies Laboratory Data (last 24 hrs) 04/03/25 04/03/25 04/03/25 21:15 19:58 19:58 WBC 14.60 H Hgb 11.8 L Hct 36.6 Plt Count 204 PT 12.2 INR 1.08 APTT 24.9 L Sodium 140 Potassium 4.7 BUN 72 H Creatinine 3.06 H Glucose 119 H Total Bilirubin 0.4 AST 11 L ALT 20 Alkaline Phosphatase 73 Lipase 20 Assessment and Plan 04/07 - Discharge back to facility with doxycycline for 1 week and Bactrim for 5 days - Case discussed with infectious disease - Follow-up with gastroenterology as outpatient will place Dr. Caldwell's information in patient paperwork - DME: Order wheelchair for home-going with back support - Discussed with daughter at length - Resume home blood pressure medication - Continue Namenda - Septic shock resolved - 04/06 - Lab work reviewed - Urine culture with E. coli, continue Augmentin - Hypernatremia resolved - Acute kidney injury resolved - Hypophosphatemia resolved - PT/OT recommendations 04/05 - Off Levophed, downgrade to floor - Now on, urine culture with E. coli, will switch to Augmentin per Dr. Saldaña - Appreciate GI recommendations for proctocolitis - Add free water every 6 hours 200 cc cc for hypernatremia - Creatinine continues to improve - Hypophosphatemia: Replace phosphorus 04/04 - Mentation slowly improving - Proctocolitis: Continue IV antibiotics, urine and blood cultures pending - Leukocytosis persists, consult infectious disease - Wean Levophed as able Acute encephalopathy metabolic Dementia History of hypertension Hyperlipidemia Arthritis Leukocytosis Septic shock resolved UTI Started on IV antibiotic Obtain cultures Change therapeutic as per sensitivity Continue home medications and titrate as needed GI/DVT prophylaxis Advanced directive full code Discharge Plan: [facility] Plan to discharge in: 48 Hours - Advance Directives Does patient have a Living Will: No Does patient have a Durable POA for Healthcare: No - Code Status/Comfort Care Code Status: Full Code Vital Signs/Physical Exam: Temp Pulse Resp BP Pulse Ox 98.3 F 71 18 130/67 98 04/07/25 12:00 04/07/25 12:00 04/07/25 12:00 04/07/25 12:00 04/07/25 12:00 Laboratory Data at Discharge: WBC 9.70 thou/uL (4.3-10.9) 04/06/25 08:16 Hgb 12.1 g/dL (12.0-15.0) D 04/06/25 08:16 Hct 35.4 % (36.0-45.0) L 04/06/25 08:16 Plt Count 248 thou/uL (152-406) 04/06/25 08:16 PT 12.2 SECONDS (10-13.0) 04/03/25 21:15 INR 1.08 04/03/25 21:15 APTT 24.9 SECONDS (27.2-37.4) L 04/03/25 21:15 Sodium 144 mEq/L (136-145) 04/06/25 08:16 Potassium 3.9 mEq/L (3.5-5.1) D 04/06/25 08:16 BUN 14 mg/dL (7-18) 04/06/25 08:16 Creatinine 0.91 mg/dL (0.55-1.02) 04/06/25 08:16 Glucose 93 mg/dL (74-106) 04/06/25 08:16 Phosphorus 2.4 mg/dL (2.5-4.9) L 04/05/25 05:32 Magnesium 2.2 mg/dL (1.6-2.4) 04/05/25 05:32 Total Bilirubin 0.3 mg/dL (0.2-1.0) 04/06/25 08:16 AST 16 U/L (15-37) 04/06/25 08:16 ALT 17 U/L (13-56) 04/06/25 08:16 Alkaline Phosphatase 71 U/L (45-117) 04/06/25 08:16 Lipase 20 U/L (13-75) 04/03/25 19:58 Home Medications: Acetaminophen [Tylenol] 650 mg PO Q6HP PRN 04/04/25 Acetaminophen with Codeine [Acetaminophen-Cod #3 Tablet] 1 each PO BID 04/04/25 Amlodipine [Norvasc*] 5 mg PO DAILY 04/04/25 Divalproex [Depakote Sprinkle*] 125 mg PO BID 04/04/25 Mag Hydroxide 8% [Milk Of Magnesia*] 30 ml PO DAILYPRN PRN 04/04/25 Meloxicam 15 mg PO DAILY 04/04/25 Memantine HCl [Memantine HCl ER] 14 mg PO DAILY 04/04/25 Ondansetron [Zofran (Odt)*] 4 mg PO Q8H PRN 04/04/25 Zoloft 25 1 tab PO DAILY 04/04/25 hydroCHLOROthiazide [Hydrodiuril*] 25 mg PO DAILY 04/04/25 lisinopriL [Lisinopril] 40 mg PO DAILY 04/04/25 Doxycycline Hyclate 100 mg PO BID 7 Days #14 cap 04/07/25 Smz./Tmp. [Bactrim Ds 800 MG/160 MG*] 1 tab PO BID 7 Days #14 tab 04/07/25 New Medications: Smz./Tmp. [Bactrim Ds 800 MG/160 MG*] 1 tab PO BID 7 Days #14 tab Doxycycline Hyclate 100 mg PO BID 7 Days #14 cap Followup: Huber Perrin MD [ACTIVE - CAN ADMIT] - Hector Pulido MD [Primary Care Provider] - 1-2 Weeks
[2025-04-07] MEDS ORDERED: DOXYCYCLINE 100 MG CAP PO SCH (21:00)
== END 2025-04-07 15:45 | DRG 871 ==
LOC: ER 19:36 → ERHOLD 23:06 → 3RD-ICU 04-04 02:01 → 2ND 04-05 15:03
PROVIDERS: ADMIT Family Medicine; ATTEND Family Medicine
PROC: 3E033XZ Introduction of Vasopressor into Peripheral Vein, Percutaneous Approach (ICD-10-PCS; principal; 2025-04-03)
DX: A41.9 Sepsis, unspecified organism (principal); G93.41 Metabolic encephalopathy; R65.21 Severe sepsis with septic shock; R57.1 Hypovolemic shock; N17.9 Acute kidney failure, unspecified; N39.0 Urinary tract infection, site not specified; K51.30 Ulcerative (chronic) rectosigmoiditis without complications; E87.0 Hyperosmolality and hypernatremia; I10 Essential (primary) hypertension; E78.5 Hyperlipidemia, unspecified; E83.39 Other disorders of phosphorus metabolism; M19.90 Unspecified osteoarthritis, unspecified site; D63.8 Anemia in other chronic diseases classified elsewhere; G30.9 Alzheimer's disease, unspecified; F02.80 Dementia in other diseases classified elsewhere, unspecified severity, without behavioral disturbance, psychotic disturbance, mood disturbance, and anxiety; B96.20 Unspecified Escherichia coli [E. coli] as the cause of diseases classified elsewhere; Z23 Encounter for immunization; Z91.013 Allergy to seafood; Z79.899 Other long term (current) drug therapy
CPT/HCPCS: 36415; 51702; 70450; 71045; 74176; 80048; 80053; 81001; 83605; 83690; 83735; 83880; 84100; 84145; 84484; 85025; 85610; 85730; 86140; 87040; 87077; 87086; 87088; 87186; 87324; 90471; 90732; 93005; 94760; 96365; 96375; 97161; 99285; J1644; J2270; J2543; J7030